=== PATIENT | female | born 1945 | race Caucasian/White ===

== ENCOUNTER 2020-09-29 14:42 | Outpatient (REF) | payer MEDICARE, SELFPAY ==
--- NOTE | 2020-09-29 | US_ITS ---
EXAMINATION: US VENOUS ULTRASOUND WITH DOPPLER LOWER EXTREMITY, RIGHT CLINICAL INFORMATION: Phlebitis right leg COMPARISON: None TECHNIQUE: Ultrasound of the deep veins is performed from the hip to the calf with compression sonography and color and pulse Doppler assessment. Spectral analysis with color-flow imaging is performed. FINDINGS: There is normal venous compression and respiratory variation and augmented flow. The visualized common femoral vein, superficial femoral vein, profunda femoral vein, popliteal vein, and the trifurcation region shows no evidence of deep venous thrombosis. There is a superficial varicosity in the medial calf that demonstrates thrombus compatible with superficial thrombophlebitis. There is no popliteal fossa cyst. There are small right inguinal lymph nodes. US/US venous duplex LE RT IMPRESSION: No DVT demonstrated in the right lower extremity. Superficial thrombophlebitis of a varicose vein in the medial calf.
== END 2020-09-29 14:43 | disposition home or self-care (01) ==
LOC: HO.US 14:42
PROVIDERS: Visit Provider Internal Medicine
DX: R60.0 Localized edema (principal)
CPT/HCPCS: 93971

== ENCOUNTER 2021-03-19 11:01 | Outpatient (REF) | payer MEDICARE, SELFPAY ==
[2021-03-19 13:32] LABS: MANUAL DIFF FLAG NO
[2021-03-19 13:41] LABS: Basophils Absolute Auto 0.1 X10*3/uL (0.0-0.2); Basophils Percent Auto 0.7 % (0-2); Eosinophils Absolute Auto 0.2 X10*3/uL (0.0-0.4); Eosinophils Percent Auto 2.2 % (0-4); Hematocrit 44.9 % (37-47); Imm Gran Abs Auto 0.04 X10*3/uL (0.00-0.03); Imm Gran Pct Auto 0.5 % (0.0-0.4); Lymphocytes Percent Auto 26.8 % (20-40); Mean Corpuscular HGB Conc 31.2 g/dl (31.0-35.0); Mean Corpuscular Hemoglobin 29.1 pg (27.0-33.0); Mean Corpuscular Volume 93.3 fL (80-98); Monocytes Percent Auto 14.1 % (2-11); Neutrophils Absolute Auto 4.1 X10*3/uL (2.0-8.3); Neutrophils Percent Auto 55.7 % (45-73); Platelet Count 142 X10*3/uL (160-400); Red Blood Count 4.81 X10*6/uL (4.20-5.50); White Blood Count 7.3 X10*3/uL (4.8-10.8)
[2021-03-19 14:05] LABS: Alanine Aminotransferase 32 U/L (0-31); Albumin Level 4.1 g/dL (3.5-5.0); Alkaline Phosphatase 88 U/L (39-117); Anion Gap 14 (12-20); Aspartate Amino Transferase 28 U/L (5-31); Bilirubin Total 0.6 mg/dL (0.0-1.0); Blood Urea Nitrogen 15 mg/dL (9-16); Calcium 9.7 mg/dL (8.4-10.2); Carbon Dioxide 26 mmol/L (22-29); Chloride 106 mmol/L (96-108); Estimated Glomerular Filt Rate > 60; Glucose Random 98 mg/dL (60-115); Potassium 4.6 mmol/L (3.3-5.1); Sodium 141 mmol/L (135-145)
[2021-03-19 14:10] LABS: Estimated Average Glucose 117 mg/dL; Hemoglobin A1C 145.7804 umol/L; Hemoglobin A1c % 5.7 %
== END 2021-03-19 11:02 | disposition home or self-care (01) ==
LOC: HO.10HDL 11:01
PROVIDERS: PCP Internal Medicine; Visit Provider Internal Medicine
DX: I10 Essential (primary) hypertension (principal); R73.03 Prediabetes
CPT/HCPCS: 36415; 80053; 83036; 85025

== ENCOUNTER 2021-03-24 13:53 | Outpatient (REF) | payer MEDICARE, SELFPAY ==
--- NOTE | ~2021-03-24 | US_ITS ---
EXAMINATION: US VENOUS ULTRASOUND WITH DOPPLER LOWER EXTREMITY, LEFT CLINICAL INFORMATION: Left leg swelling COMPARISON: None TECHNIQUE: Ultrasound of the deep veins is performed from the hip to the calf with compression sonography and color and pulse Doppler assessment. Spectral analysis with color-flow imaging is performed. FINDINGS: There is normal venous compression and respiratory variation and augmented flow. The visualized common femoral vein, superficial femoral vein, profunda femoral vein, popliteal vein, and the trifurcation region shows no evidence of deep venous thrombosis. There is no significant popliteal fossa cyst. . US/US venous duplex LE LT IMPRESSION: No DVT demonstrated in the left lower extremity.
== END 2021-03-24 13:54 | disposition home or self-care (01) ==
LOC: HO.US 13:53
PROVIDERS: PCP Internal Medicine; Visit Provider Internal Medicine
DX: M79.89 Other specified soft tissue disorders (principal)
CPT/HCPCS: 93971

== ENCOUNTER 2021-05-19 12:14 | Outpatient (REF) | payer MEDICARE, SELFPAY ==
--- NOTE | ~2021-05-19 | MM_ITS ---
EXAMINATION: MM SCREENING DIGITAL BREAST TOMOSYNTHESIS, BILATERAL CLINICAL INFORMATION: Screening. Asymptomatic. The lifetime risk of breast cancer based on the Tyrer-Cuzick Model is 2%. COMPARISON: Mammography: 05/12/2020, 01/31/2019, 01/09/2018 TECHNIQUE: Digital breast tomosynthesis is performed in both the craniocaudal and mediolateral oblique views along with computer-aided detection (CAD). Synthesized 2D images are generated from the tomosynthesis. FINDINGS: The breasts are almost entirely fatty (ACR BI-RADS breast composition Category a). There are no significant masses, abnormal calcifications, or other abnormalities. Background stromal densities are stable. There is no developing density. Biopsy clip marker again seen central lower left breast mid depth. Skin contours are unremarkable. No significant changes. MM/MM tomosynthesis screening BI IMPRESSION: No mammographic evidence of malignancy. ASSESSMENT: BI-RADS 1: Negative RECOMMENDATION: Routine annual mammography screening. This patient's information was entered into a reminder system with a target due date for their next mammogram.
== END 2021-05-19 12:15 | disposition home or self-care (01) ==
LOC: HO.MAMMO 12:14
PROVIDERS: Visit Provider Internal Medicine
DX: Z12.31 Encounter for screening mammogram for malignant neoplasm of breast (principal)
CPT/HCPCS: 77063; 77067

== ENCOUNTER 2021-08-14 14:34 | Outpatient (REF) | payer MEDICARE, SELFPAY ==
[2021-08-14 15:16] LABS: Influenza A PCR NEGATIVE (Negative); Influenza B PCR NEGATIVE (Negative); Resp Syncy Virus RNA Qual PCR NEGATIVE (Negative); SARS COV2 PCR INHOUSE NEGATIVE (Negative)
== END 2021-08-14 14:35 | disposition home or self-care (01) ==
LOC: HO.LNP 14:34
PROVIDERS: Visit Provider Internal Medicine
DX: Z20.822 Contact with and (suspected) exposure to COVID-19 (principal); R05.9 Cough, unspecified; J45.909 Unspecified asthma, uncomplicated
CPT/HCPCS: 0241U

== ENCOUNTER 2021-08-21 11:00 | Outpatient (REF) | payer MEDICARE, SELFPAY ==
[2021-08-21 14:06] LABS: Basophils Absolute Auto 0.1 X10*3/uL (0.0-0.2); Basophils Percent Auto 0.4 % (0-2); Eosinophils Absolute Auto 0.3 X10*3/uL (0.0-0.4); Eosinophils Percent Auto 2.1 % (0-4); Hemoglobin 15.1 g/dl (12.0-16.0); Imm Gran Abs Auto 0.06 X10*3/uL (0.00-0.03); Imm Gran Pct Auto 0.5 % (0.0-0.4); Lymphocytes Absolute Auto 2.9 X10*3/uL (1.2-4.9); Lymphocytes Percent Auto 23.4 % (20-40); MANUAL DIFF FLAG SCAN; Mean Corpuscular HGB Conc 31.5 g/dl (31.0-35.0); Mean Corpuscular Hemoglobin 29.4 pg (27.0-33.0); Mean Corpuscular Volume 93.6 fL (80.0-98.0); Monocytes Percent Auto 8.5 % (2-11); Neutrophils Absolute Auto 7.9 x10*3/uL (2.0-8.3); Neutrophils Percent Auto 65.1 % (45-73); PLT CLUMP 1; Red Blood Count 5.13 X10*6/uL (4.20-5.50); Red Cell Distribution Width 13.2 % (11.0-16.0); SCAN SMEAR FLAG 1
[2021-08-21 14:07] LABS: White Blood Count 12.2 X10*3/uL (4.8-10.8)
[2021-08-21 14:21] LABS: Anion Gap 12 (12-20); Blood Urea Nitrogen 21 mg/dL (9-16); Calcium 9.7 mg/dL (8.4-10.2); Carbon Dioxide 28 mmol/L (22-29); Chloride 105 mmol/L (96-108); Cholesterol 225 mg/dL; Estimated Glomerular Filt Rate > 60; Glucose Random 79 mg/dL (60-115); Potassium 4.3 mmol/L (3.3-5.1); Sodium 141 mmol/L (135-145)
[2021-08-21 14:37] LABS: SLIDE REVIEW VERIFIED
== END 2021-08-21 11:01 | disposition home or self-care (01) ==
LOC: HO.10HDL 11:00
PROVIDERS: Visit Provider Internal Medicine
DX: I10 Essential (primary) hypertension (principal); D64.9 Anemia, unspecified; E78.00 Pure hypercholesterolemia, unspecified
CPT/HCPCS: 36415; 80048; 82465; 85025

== ENCOUNTER 2021-08-24 06:57 | Day surgery (SDC) | payer MEDICARE, SELFPAY ==
[2021-08-18 09:53] VITALS: BMI 40.8
--- NOTE | 2021-08-20 16:29 | MHC.SHP ---
Pre-Procedural Eval Section A Date of Service: 08/20/21 The patient is an INPATIENT: No Changes since office visit: No Cold of Flu in the past 2 weeks, No New Medical Problems, No Changes in Medication and No Patient answered all questions The History & Physical has been completed within 30 days and I have reviewed it.: Yes Section B Chief Complaint: cataract left eye Allergies: Allergies Allergy/AdvReac Type Severity Reaction Status Date / Time No Known Allergies Allergy Unverified 05/29/20 15:14 Plan Diagnosis/Plan: Unchanged I have reviewed the history and physical and performed a pertinent physical examination on my patient. No changes have occurred unless specified.
--- NOTE | 2021-08-21 10:51 | HO.ANESPROP2 ---
Documented by User: Ruma Block NP 08/21/21 10:51 HPI - Anesthesia Eval Consult details Narrative: 75yo F for Left Cataract Extraction IOL Insertion No prev cataract on record [facility] Past Medical History Medical History (Updated 08/18/21 @ 09:55 by Ondina Hughes, NIRMAL) Arthritis Asthma Back pain COVID-19 vaccine series completed DVT (deep venous thrombosis) HTN (hypertension) Surgical History Surgical History (Updated 08/18/21 @ 09:51 by Ondina Hughes RN) H/O colonoscopy History of total right knee replacement Hx of cervical discectomy Hx of cholecystectomy Social History Social History Household Members Other:: roomate Are you a primary career representative to a significant other at home: No Do you presently have visiting nurse or other home services: No Patient Tobacco Use Status: Former Tobacco user Quit Date: age 45 Tobacco use type: Cigarette Years Smoked: 15 Use of substances other than those prescribed or required for medical reasons: No Have you been hit, kicked, punched, or otherwise hurt by someone within the past year? If so, by whom?: No Are you DNR?: No Advance Directives Information Provided: Yes (as above noted) Advance Directives on File: No Recently lost weight without trying: No Eating poorly because of decreased appetite: No Nutrition Risks: No Nutritional Risk Poor oral hygiene: No Meds Allergies Allergy/AdvReac Type Severity Reaction Status Date / Time cortisone Allergy Flushing Verified 08/24/21 07:33 Home Medications Medication Instructions Recorded Confirmed Last Taken Type albuterol sulfate 90 mcg/actuation 2 puff INHALATION Q4-6H PRN 08/18/21 08/18/21 Unknown History aerosol inhaler (Ventolin HFA) amlodipine 2.5 mg tablet 2.5 mg PO DAILY 08/18/21 08/18/21 08/24/21 History aspirin 81 mg tablet,delayed 81 mg PO DAILY 08/18/21 08/18/21 Unknown History release metoprolol tartrate 50 mg tablet 50 mg PO BID 08/18/21 08/18/21 08/24/21 History valsartan 40 mg tablet 40 mg PO BID 08/18/21 08/18/21 Unknown History Exam Exam Date and Time: August 21, 2021 1051 Height,Weight and Vital Signs: Height 5 ft Weight 94.801 kg Assessment and Plan Assessment Anesthesia Assessment: Chart Reviewed Documented by User: Freddy Orlando MD 08/24/21 08:05 [facility] Past Medical History Medical History (Updated 08/18/21 @ 09:55 by Ondina Hughes RN) Arthritis Asthma Back pain COVID-19 vaccine series completed DVT (deep venous thrombosis) HTN (hypertension) Family History Family history of problems with anesthesia: No Surgical History Surgical History (Updated 08/18/21 @ 09:51 by Ondina Hughes RN) H/O colonoscopy History of total right knee replacement Hx of cervical discectomy Hx of cholecystectomy History of Problems with Anesthesia: No Social History Social History Household Members Other:: roomate Are you a primary career representative to a significant other at home: No Do you presently have visiting nurse or other home services: No Patient Tobacco Use Status: Former Tobacco user Quit Date: age 45 Tobacco use type: Cigarette Years Smoked: 15 Use of substances other than those prescribed or required for medical reasons: No Have you been hit, kicked, punched, or otherwise hurt by someone within the past year? If so, by whom?: No Are you DNR?: No Advance Directives Information Provided: Yes (as above noted) Advance Directives on File: No Recently lost weight without trying: No Eating poorly because of decreased appetite: No Nutrition Risks: No Nutritional Risk Poor oral hygiene: No Meds Allergies Allergy/AdvReac Type Severity Reaction Status Date / Time cortisone Allergy Flushing Verified 08/24/21 07:33 Home Medications Medication Instructions Recorded Confirmed Last Taken Type albuterol sulfate 90 mcg/actuation 2 puff INHALATION Q4-6H PRN 08/18/21 08/18/21 Unknown History aerosol inhaler (Ventolin HFA) amlodipine 2.5 mg tablet 2.5 mg PO DAILY 08/18/21 08/18/21 08/24/21 History aspirin 81 mg tablet,delayed 81 mg PO DAILY 08/18/21 08/18/21 Unknown History release metoprolol tartrate 50 mg tablet 50 mg PO BID 08/18/21 08/18/21 08/24/21 History valsartan 40 mg tablet 40 mg PO BID 08/18/21 08/18/21 Unknown History Exam Airway Mallampati Class: II TM Dist: >3cm Neck ROM: Full Loose/Missing/Broken Teeth: No Heart: rrr+[id number] Lungs: cta b/l Assessment and Plan Assessment Anesthesia Assessment: Anesthesia Plan Discussed Final Anesthetic Review Family History of Problems with Anesthesia: No History of Problems with Anesthesia: No NPO: Yes ASA Class: III Final Preanesthetic Review: No Changes in Pt Med Stat, Meds/Allgs Chart Reviewed, Consent Obtained/Reviewed and Anes Risks/Benef Reviewed Patient Risk: Intermediate Procedure Risk: Low Assessment/Block/Sedation in SS: Assess/Block/Sedation-SS Anesthetic Plan Anesthetic Plan: MAC: and Agree w/ Assess. and Plan Disposition: Standard PACU
--- NOTE | 2021-08-21 15:30 | HP_ITS ---
DATE OF SERVICE: 08/24/2021 HISTORY OF PRESENT ILLNESS: The patient is a 75-year-old female, who was seen in the office for preop evaluation prior to cataract surgery scheduled next week. The patient feels well. PRESENT MEDICATIONS: Valsartan 40 mg twice a day, metoprolol 50 mg twice a day, baby aspirin once a day, Ventolin inhaler 2 puffs 4 times a day as needed, and Claritin 10 mg once a day as needed. PAST MEDICAL HISTORY: Significant for gout, hypertension, asthma, back pain, elevated cholesterol, arthritis in the knees, osteoporosis, history of neck surgery, history of gallbladder surgery, and 3 normal deliveries. FAMILY HISTORY: Parents lived into their 90s. SOCIAL HISTORY: She has 3 children. She does not smoke. REVIEW OF SYSTEMS: Weight is down 4 pounds. No fevers, chills, or sweats. No headaches or dizziness. No vision changes. No chest pains or palpitations. Some occasional peripheral edema. Occasional cough. Dyspnea with exertion. No heartburn or stomach pains. No dysuria. Arthritis in the knees. Sleep and appetite are normal. No skin complaints. ALLERGIES: SHE LIST AN ALLERGY TO EPIDURAL INJECTIONS. PHYSICAL EXAMINATION: GENERAL: She is awake and alert, in no distress. VITAL SIGNS: Temperature is 97.8, pulse 72, respirations 12, blood pressure 130/88, and 97% room air oxygen. Weight is 216, down 4 pounds from previously. She is 5 feet 1/2 inch. HEENT: Pupils equal. TMs clear. Pharynx clear. NECK: Supple. No lymph nodes, bruits, or masses. CARDIAC: Heart sounds S1 and S2. Regular rate and rhythm. LUNGS: Clear. ABDOMEN: Soft and nontender. Positive bowel sounds. No HSM. EXTREMITIES: Positive ankle edema, 1+ pulses. Tender right ankle posteriorly. NEUROLOGIC: Cranial nerves II through XII are intact. Hand grasps are equal. ASSESSMENT AND PLAN: She is medically stable for the proposed procedure. I will be available if there are any medical questions. Jay Zambrano MD FC/MODL / [phone]
[2021-08-24 07:33] VITALS: BP 158/88; PULSE 70; RESP 16; TEMP 36.1; O2SAT 95
[2021-08-24] MEDS: Tetracaine HCl/PF 0.5% Oph Sol 4 ML DROPS 1 DROP EYE-LEFT (07:36)
[2021-08-24] MEDS: Tropicamide 1 % Ophth Sol 3 ML BTL 1 DROP EYE-LEFT ×3 (07:37→07:51)
[2021-08-24] MEDS: Phenylephrine HCL 2.5% Oph SoL 2 ML BOTTLE 1 DROP EYE-LEFT ×3 (07:42→07:53)
[2021-08-24] MEDS: Lactated Ringers 500 ML 50 ML IV (07:43)
--- NOTE | 2021-08-24 09:18 | HO.PNOPHT ---
Ophthalmology Procedure Procedure Date of Service: 08/24/21 Ophthalmology Viscoelastic: Healon Duet Dual Pack Pro Ophthalmology Lenses: TECNIS [id number] (11.5) Procedure Notes: PREOPERATIVE DIAGNOSIS: Decreased visual acuity left eye secondary to cataract POSTOPERATIVE DIAGNOSIS: Same PROCEDURE: Left cataract extraction with intraocular lens insertion SURGEON: Diego Paulino M.D. ANESTHESIA: Topical/MAC ESTIMATED BLOOD LOSS: None COMPLICATIONS: None After obtaining informed consent, the patient was brought to the operation room suite and placed in the supine position. After adequate sedation per anesthesia, topical drops of Tetracaine were given to the left eye. The eye was then prepped and draped in the usual sterile fashion. The operating room microscope was then positioned over the operative eye and a lid speculum placed. A paracentesis was created. Viscoelastic was then instilled into the anterior chamber. A three plane incision was then created temporally, utilizing a 2.85 mm keratome. Capsulotomy forceps were then utilized to create a circular tear capsulotomy. Hydrodissection and hydrodelineation were carried out until adequate mobilization of the nucleus occurred. Phacoemulsification was then utilized to remove the dense central nucleus followed by removal of the cortical material utilizing the automated aspiration irrigation unit. Viscoat elastic was instilled into the posterior capsular bag followed by placement of a posterior chamber intraocular lens without difficulty. The residual Viscoat elastic was then removed utilizing the automated IA machine. The wound was check and found to be watertight. The patient tolerated the procedure well and the lid speculum was removed. Intracameral injection of Vigamox 0.1 mL followed by a subtenon injection of Kenalog-40 0.2 mL were administered. The patient will be seen in the a.m.
[2021-08-24 09:40] VITALS: BP 129/84; PULSE 63; RESP 17; TEMP 36.9; O2SAT 96
== END 2021-08-24 09:49 | disposition home or self-care (01) ==
PROVIDERS: PCP Internal Medicine; Visit Provider Ophthalmology
PROC: (CPT 66985; principal; 2021-08-24 09:50)
DX: H25.12 Age-related nuclear cataract, left eye (principal); H52.4 Presbyopia; H52.13 Myopia, bilateral; I10 Essential (primary) hypertension; E78.00 Pure hypercholesterolemia, unspecified; Z79.899 Other long term (current) drug therapy; Z86.718 Personal history of other venous thrombosis and embolism; Z87.891 Personal history of nicotine dependence
CPT/HCPCS: 66984; J2250; J3010; J3300; V2632

== ENCOUNTER 2022-04-26 07:08 | Day surgery (SDC) | payer MEDICARE, SELFPAY ==
[2022-04-14 10:34] VITALS: BMI 40.8
--- NOTE | 2022-04-19 19:34 | HP_ITS ---
DATE OF SERVICE: 04/26/2022 The patient is a 76-year-old female who is seen today for preop evaluation prior to right cataract surgery on April [address] Paulino. She feels well. REVIEW OF SYSTEMS: Some edema in the left ankle. No fevers, chills, or sweats. Weight is up 4 pounds. No headaches or dizziness. No palpitations or chest pain. No coughing or shortness of breath. No heartburn or stomach pains. No dysuria. Some nocturia, arthritis in knees. Sleep and appetite are normal. No complaints of depression or anxiety. She has some seasonal allergies. No skin rashes. PAST MEDICAL HISTORY: Significant for asthma, back pain, hypertension, gout, elevated cholesterol, right ankle pain, overweight, borderline elevated TSH, osteoarthritis of the knees. PRESENT MEDICATIONS: Valsartan 40 mg twice a day, metoprolol 50 mg twice a day, baby aspirin once a day, Ventolin inhaler 2 puffs every 4 hours as needed, Claritin 10 mg daily as needed for allergies, amlodipine 5 mg 1 p.o. daily. PHYSICAL EXAMINATION: GENERAL: She is awake and alert, in no distress. VITAL SIGNS: Temperature 98.5, pulse 68, respirations 12, pressure 114/80, 95% oxygen saturation on room air. Weight is 216.5, height 5 feet 1 inch. HEENT: Clear. NECK: Supple. No lymph nodes, bruits or masses. HEART: Sounds S1 and S2. Regular rate. LUNGS: Clear. A little distant. ABDOMEN: Soft, nontender. Positive bowel sounds. No HSM. EXTREMITIES: Left ankle edema. 1+ pulses. Varicose veins bilaterally. NEUROLOGICAL: Cranial nerves II through XII are intact. No bruising. ASSESSMENT AND PLAN: She is medically stable for the proposed procedure. I will be available if there are any medical issues. MD CASI Gonzalez/ESSENCEL / [phone]
--- NOTE | 2022-04-23 13:03 | HO.ANESPROP2 ---
Documented by User: Ruma Block NP 04/23/22 13:03 HPI - Anesthesia Eval Consult details Narrative: 76yo F for Right Cataract Extraction IOL Insertion PCP cleared Left eye 08/2021 with MAC: Fent 50, Midaz 1 PMF[facility] Past Medical History Medical History Arthritis Asthma Back pain COVID-19 vaccine series completed DVT (deep venous thrombosis) HTN (hypertension) Family History Family history of problems with anesthesia: No Surgical History Surgical History H/O colonoscopy History of total right knee replacement Hx of cervical discectomy Hx of cholecystectomy Hx of left cataract extraction History of Problems with Anesthesia: No Social History Social History Household Members Other:: roomate Are you a primary hospice spiritual care coordinator to a significant other at home: No Do you presently have visiting nurse or other home services: No Patient Tobacco Use Status: Former Tobacco user Quit Date: age 45 Tobacco use type: Cigarette Years Smoked: 15 Use of substances other than those prescribed or required for medical reasons: No Have you been hit, kicked, punched, or otherwise hurt by someone within the past year? If so, by whom?: No Are you DNR?: No Advance Directives: No Advance Directives Information Provided: Yes (as above noted) Advance Directives on File: No Recently lost weight without trying: No Eating poorly because of decreased appetite: No Nutrition Risks: No Nutritional Risk Poor oral hygiene: No Meds Allergies Allergy/AdvReac Type Severity Reaction Status Date / Time cortisone Allergy Flushing Verified 04/26/22 07:48 Home Medications Medication Instructions Recorded Confirmed Last Taken Type albuterol sulfate 90 mcg/actuation 2 puff inhalation Q4-6H PRN 08/18/21 04/14/22 Unknown History aerosol inhaler (Ventolin HFA) Wheezing amlodipine 2.5 mg tablet 2.5 mg PO DAILY 08/18/21 04/14/22 04/26/22 06:30 History aspirin 81 mg tablet,delayed 81 mg PO DAILY 08/18/21 04/14/22 Unknown History release metoprolol tartrate 50 mg tablet 50 mg PO BID 08/18/21 04/14/22 04/26/22 06:30 History valsartan 40 mg tablet 40 mg PO BID 08/18/21 04/14/22 Unknown History colchicine 0.6 mg tablet 1 tab PO DAILY 04/26/22 04/26/22 04/26/22 06:30 History Exam Exam Date and Time: April 23, 2022 1303 Height,Weight and Vital Signs: Height 5 ft Weight 94.801 kg Assessment and Plan Assessment Anesthesia Assessment: Chart Reviewed Final Anesthetic Review Family History of Problems with Anesthesia: No History of Problems with Anesthesia: No Documented by User: Doretha Calloway MD 04/26/22 09:47 [facility] Past Medical History Medical History Arthritis Asthma Back pain COVID-19 vaccine series completed DVT (deep venous thrombosis) HTN (hypertension) Functional capacity: independent ambulation Patient : No Surgical History Surgical History H/O colonoscopy History of total right knee replacement Hx of cervical discectomy Hx of cholecystectomy Hx of left cataract extraction Social History Social History Household Members Other:: roomate Are you a primary hospice spiritual care coordinator to a significant other at home: No Do you presently have visiting nurse or other home services: No Patient Tobacco Use Status: Former Tobacco user Quit Date: age 45 Tobacco use type: Cigarette Years Smoked: 15 Use of substances other than those prescribed or required for medical reasons: No Have you been hit, kicked, punched, or otherwise hurt by someone within the past year? If so, by whom?: No Are you DNR?: No Advance Directives: No Advance Directives Information Provided: Yes (as above noted) Advance Directives on File: No Recently lost weight without trying: No Eating poorly because of decreased appetite: No Nutrition Risks: No Nutritional Risk Poor oral hygiene: No Meds Allergies Allergy/AdvReac Type Severity Reaction Status Date / Time cortisone Allergy Flushing Verified 04/26/22 07:48 Home Medications Medication Instructions Recorded Confirmed Last Taken Type albuterol sulfate 90 mcg/actuation 2 puff inhalation Q4-6H PRN 08/18/21 04/14/22 Unknown History aerosol inhaler (Ventolin HFA) Wheezing amlodipine 2.5 mg tablet 2.5 mg PO DAILY 08/18/21 04/14/22 04/26/22 06:30 History aspirin 81 mg tablet,delayed 81 mg PO DAILY 08/18/21 04/14/22 Unknown History release metoprolol tartrate 50 mg tablet 50 mg PO BID 08/18/21 04/14/22 04/26/22 06:30 History valsartan 40 mg tablet 40 mg PO BID 08/18/21 04/14/22 Unknown History colchicine 0.6 mg tablet 1 tab PO DAILY 04/26/22 04/26/22 04/26/22 06:30 History Exam Airway Mallampati Class: IV TM Dist: >3cm Neck ROM: Full Heart: RRR Lungs: CTA Assessment and Plan Final Anesthetic Review ASA Class: III Final Preanesthetic Review: No Changes in Pt Med Stat, Meds/Allgs Chart Reviewed, Consent Obtained/Reviewed and Anes Risks/Benef Reviewed Patient Risk: Low Procedure Risk: Low Anesthetic Plan Anesthetic Plan: MAC: Disposition: Standard PACU
--- NOTE | 2022-04-26 06:55 | MHC.SHP ---
Pre-Procedural Eval Section A Date of Service: 04/26/22 The patient is an INPATIENT: No Changes since office visit: No Cold of Flu in the past 2 weeks, No New Medical Problems, No Changes in Medication and No Patient answered all questions The History & Physical has been completed within 30 days and I have reviewed it.: Yes Section B Chief Complaint: Age-related nuclear cataract, right eye Allergies: Allergies Allergy/AdvReac Type Severity Reaction Status Date / Time cortisone Allergy Flushing Verified 08/24/21 07:33 Plan Diagnosis/Plan: Unchanged I have reviewed the history and physical and performed a pertinent physical examination on my patient. No changes have occurred unless specified.
[2022-04-26 07:50] VITALS: BP 156/85; PULSE 62; RESP 16; TEMP 36.6; O2SAT 96
[2022-04-26] MEDS: Tetracaine HCl/PF 0.5% Oph Sol 4 ML DROPS 1 DROP EYE-RIGHT (07:53)
[2022-04-26] MEDS: Cyclopentolate 1 % Ophth Sol 2 ML DRPBTL 1 DROP EYE-RIGHT ×3 (07:55→08:06)
[2022-04-26] MEDS: Tropicamide 1 % Ophth Sol 3 ML BTL 1 DROP EYE-RIGHT ×3 (07:58→08:08)
[2022-04-26] MEDS: Phenylephrine HCL 2.5% Oph SoL 2 ML BOTTLE 1 DROP EYE-RIGHT ×3 (07:59→08:09)
[2022-04-26] MEDS: Lactated Ringers 500 ML 50 ML IV (08:01)
--- NOTE | 2022-04-26 09:32 | HO.PNOPHT ---
Ophthalmology Procedure Procedure Date of Service: 04/26/22 Ophthalmology Viscoelastic: Amparo Alanis Dual Pack Pro Ophthalmology Lenses: TECCARLOS [id number] (12) Procedure Notes: PREOPERATIVE DIAGNOSIS: Decreased visual acuity right eye secondary to cataract POSTOPERATIVE DIAGNOSIS: Same PROCEDURE: Right cataract extraction with intraocular lens insertion SURGEON: Diego Paulino M.D. ANESTHESIA: Topical/MAC ESTIMATED BLOOD LOSS: None COMPLICATIONS: None After obtaining informed consent, the patient was brought to the operating room suite and placed in the supine position. After adequate sedation per anesthesia, topical drops of Tetracaine were given to the right eye. The eye was then prepped and draped in the usual sterile fashion. The operating room microscope was then positioned over the operative eye and a lid speculum placed. A paracentesis was created. Viscoelastic was then instilled into the anterior chamber. A three plane incision was then created temporally, utilizing a 2.85 mm keratome. Capsulotomy forceps were then utilized to create a circular tear capsulotomy. Hydrodissection and hydrodelineation were carried out until adequate mobilization of the nucleus occurred. Phacoemulsification was then utilized to remove the dense central nucleus followed by removal of the cortical material utilizing the automated aspiration irrigation unit. Viscoelastic was instilled into the posterior capsular bag followed by placement of a posterior chamber intraocular lens without difficulty. The residual Viscoelastic was then removed utilizing the automated IA machine. The wound was checked and found to be watertight. The patient tolerated the procedure well and the lid speculum was removed. Intracameral injection of Vigamox 0.1 mL followed by a subtenon injection of Kenalog-40 0.2 mL were administered. The patient will be seen in the a.m.
[2022-04-26 10:00] VITALS: BP 148/79; PULSE 66; RESP 18; TEMP 36.1; O2SAT 97
--- NOTE | 2022-04-26 10:46 | HO.POSTANES ---
Post Anesthesia Evaluation Post Anesthesia Evaluation Vital Signs: Vital Signs Temp Pulse Resp BP Pulse Ox O2 Del Method 04/26/22 10:00 97 F 66 18 148/79 H 97 Room Air 04/26/22 07:50 97.8 F 62 16 156/85 H 96 Room Air Anesthesia: Monitored Mental Status: Awake Pain Control: Satisfactory Nausea/Vomiting: None Hydration: Adequate Anesthesia-Related Issues: No Anes. Related Issues
== END 2022-04-26 10:16 ==
LOC: HO.SSS 07:08
PROVIDERS: PCP Internal Medicine; Visit Provider Ophthalmology
PROC: (CPT 66985; principal; 2022-04-26 10:10)
DX: H25.11 Age-related nuclear cataract, right eye (principal); H54.7 Unspecified visual loss; Z96.1 Presence of intraocular lens; I10 Essential (primary) hypertension; E78.00 Pure hypercholesterolemia, unspecified; J45.909 Unspecified asthma, uncomplicated; M10.9 Gout, unspecified; Z86.718 Personal history of other venous thrombosis and embolism; Z79.01 Long term (current) use of anticoagulants; Z79.82 Long term (current) use of aspirin; Z79.899 Other long term (current) drug therapy; Z88.8 Allergy status to other drugs, medicaments and biological substances; Z96.651 Presence of right artificial knee joint; Z87.891 Personal history of nicotine dependence
CPT/HCPCS: 66984; J2250; J3300; V2632

== ENCOUNTER 2022-05-25 10:56 | Outpatient (REF) | payer MEDICARE, SELFPAY ==
--- NOTE | ~2022-05-25 | MM_ITS ---
EXAMINATION: MM SCREENING DIGITAL BREAST TOMOSYNTHESIS, BILATERAL CLINICAL INFORMATION: Screening. Asymptomatic. The lifetime risk of breast cancer based on the Tyrer-Cuzick Model is 2.1%. COMPARISON: Mammography: May 19, 2021 and studies dating back to July 26, 2016 TECHNIQUE: Digital breast tomosynthesis is performed in both the craniocaudal and mediolateral oblique views along with computer-aided detection (CAD). Synthesized 2D images are generated from the tomosynthesis. FINDINGS: The breasts are almost entirely fatty (ACR BI-RADS breast composition Category a). There are no significant masses, abnormal calcifications, or other abnormalities. MM/MM tomosynthesis screening BI IMPRESSION: No significant changes from prior exam. ASSESSMENT: BI-RADS 1: Negative RECOMMENDATION: Routine annual mammography screening. This patient's information was entered into a reminder system with a target due date for their next mammogram.
== END 2022-05-25 10:57 | disposition home or self-care (01) ==
LOC: HO.MAMMO 10:56
PROVIDERS: PCP Internal Medicine; Visit Provider Internal Medicine
DX: Z12.31 Encounter for screening mammogram for malignant neoplasm of breast (principal)
CPT/HCPCS: 77063; 77067

== ENCOUNTER 2022-06-04 14:33 | Outpatient (REF) | payer MEDICARE, SELFPAY ==
[2022-06-04 15:46] LABS: Influenza A PCR NEGATIVE (Negative); Influenza B PCR NEGATIVE (Negative); Resp Syncy Virus RNA Qual PCR NEGATIVE (Negative); SARS COV2 PCR INHOUSE POSITIVE (Negative)
== END 2022-06-04 14:34 | disposition home or self-care (01) ==
LOC: HO.LNP 14:33
PROVIDERS: Visit Provider Internal Medicine
DX: R05.9 Cough, unspecified (principal); Z20.822 Contact with and (suspected) exposure to COVID-19
CPT/HCPCS: 0241U

== ENCOUNTER 2023-01-19 08:50 | Outpatient (REF) | payer MEDICARE, SELFPAY ==
[2023-01-19 10:59] LABS: Basophils Percent Auto 0.5 % (0-2); Eosinophils Absolute Auto 0.2 X10*3/uL (0.0-0.4); Eosinophils Percent Auto 2.9 % (0-4); Hematocrit 46.3 % (37.0-47.0); Hemoglobin 14.8 g/dl (12.0-16.0); Imm Gran Abs Auto 0.02 X10*3/uL (0.00-0.03); Imm Gran Pct Auto 0.3 % (0.0-0.4); Lymphocytes Absolute Auto 2.5 X10*3/uL (1.2-4.9); Lymphocytes Percent Auto 33.5 % (20-40); MANUAL DIFF FLAG SCAN; Mean Corpuscular Hemoglobin 30.6 pg (27.0-33.0); Mean Corpuscular Volume 95.7 fL (80.0-98.0); Monocytes Absolute Auto 0.6 X10*3/uL (0.1-1.2); Monocytes Percent Auto 8.5 % (2-11); Neutrophils Percent Auto 54.3 % (45-73); PLT CLUMP 1; Red Blood Count 4.84 X10*6/uL (4.20-5.50); Red Cell Distribution Width 13.7 % (11.0-16.0); SCAN SMEAR FLAG 1
[2023-01-19 11:18] LABS: Alanine Aminotransferase 40 U/L (0-31); Albumin Level 4.1 g/dL (3.5-5.0); Alkaline Phosphatase 81 U/L (39-117); Anion Gap 9 (12-20); Aspartate Amino Transferase 31 U/L (5-31); Bilirubin Total 1.1 mg/dL (0.0-1.0); Blood Urea Nitrogen 16 mg/dL (9-16); Calcium 10.1 mg/dL (8.4-10.2); Carbon Dioxide 30 mmol/L (22-29); Chloride 107 mmol/L (96-108); Cholesterol 287 mg/dL; Estimated Glomerular Filt Rate > 60; Glucose Fasting 104 mg/dL (60-99); HDL Cholesterol 35 mg/dL; LDL Cholesterol Calculated 188 mg/dl; Potassium 4.6 mmol/L (3.3-5.1); Sodium 141 mmol/L (135-145); Total Protein 6.7 g/dL (6.5-8.0); Triglycerides 321 mg/dL
[2023-01-19 11:30] LABS: Platelet Count 175 X10*3/uL (160-400); SLIDE REVIEW VERIFIED; White Blood Count 7.3 X10*3/uL (4.8-10.8)
== END 2023-01-19 08:51 | disposition home or self-care (01) ==
LOC: HO.10HDL 08:50
PROVIDERS: Visit Provider Internal Medicine
DX: I10 Essential (primary) hypertension (principal); E78.00 Pure hypercholesterolemia, unspecified
CPT/HCPCS: 36415; 80053; 80061; 85025

== ENCOUNTER 2023-05-03 07:56 | Outpatient (REF) | payer MEDICARE, SELFPAY ==
[2023-05-03 11:10] LABS: Alanine Aminotransferase 39 U/L (0-31); Albumin Level 4.2 g/dL (3.5-5.0); Alkaline Phosphatase 84 U/L (39-117); Anion Gap 11 (12-20); Aspartate Amino Transferase 30 U/L (5-31); Bilirubin Total 0.7 mg/dL (0.0-1.0); Blood Urea Nitrogen 18 mg/dL (9-16); Calcium 10.6 mg/dL (8.4-10.2); Carbon Dioxide 28 mmol/L (22-29); Chloride 106 mmol/L (96-108); Cholesterol 303 mg/dL (<200); Estimated Glomerular Filt Rate > 60; Glucose Fasting 115 mg/dL (60-99); HDL Cholesterol 39 mg/dL (>40); LDL Cholesterol Calculated 204 mg/dL (<100); Potassium 4.4 mmol/L (3.3-5.1); Sodium 141 mmol/L (135-145); Total Protein 7.2 g/dL (6.5-8.0); Triglycerides 303 mg/dL (<150)
== END 2023-05-03 07:57 | disposition home or self-care (01) ==
LOC: HO.10HDL 07:56
PROVIDERS: Visit Provider Internal Medicine
DX: I10 Essential (primary) hypertension (principal); E78.00 Pure hypercholesterolemia, unspecified
CPT/HCPCS: 36415; 80053; 80061

== ENCOUNTER 2023-05-31 10:50 | Outpatient (REF) | payer MEDICARE, SELFPAY | END 2023-05-31 10:51 | disposition home or self-care (01) | LOC: HO.MAMMO 10:50 | PROVIDERS: PCP Internal Medicine; Visit Provider Internal Medicine | DX: Z12.31 Encounter for screening mammogram for malignant neoplasm of breast (principal) | CPT/HCPCS: 77063; 77067 ==

== ENCOUNTER → 2023-05-31 11:00 | Outpatient (BNV) | payer MEDICARE, SELFPAY | PROVIDERS: PCP Internal Medicine; Visit Provider Radiology Diagnostic Radiology | DX: Z12.31 Encounter for screening mammogram for malignant neoplasm of breast (principal) | CPT/HCPCS: 77063; 77067 ==

== ENCOUNTER 2023-10-21 09:25 | Outpatient (REF) | payer MEDICARE, SELFPAY ==
[2023-10-21 11:09] LABS: Estimated Average Glucose 114 mg/dL; Hemoglobin A1c % 5.6 % (<6.0)
[2023-10-21 11:41] LABS: Alanine Aminotransferase 24 U/L (0-31); Anion Gap 12 (12-20); Aspartate Amino Transferase 18 U/L (5-31); Blood Urea Nitrogen 29 mg/dL (9-16); Calcium 10.3 mg/dL (8.4-10.2); Carbon Dioxide 26 mmol/L (22-29); Chloride 107 mmol/L (96-108); Cholesterol 154 mg/dL (<200); Estimated Glomerular Filt Rate 57; Glucose Fasting 117 mg/dL (60-99); HDL Cholesterol 42 mg/dL (>40); LDL Cholesterol Calculated 92 mg/dL (<100); Potassium 4.7 mmol/L (3.3-5.1); Sodium 140 mmol/L (135-145); Triglycerides 102 mg/dL (<150)
== END 2023-10-21 09:26 | disposition home or self-care (01) ==
LOC: HO.10HDL 09:25
PROVIDERS: Visit Provider Internal Medicine
DX: E78.00 Pure hypercholesterolemia, unspecified (principal); I10 Essential (primary) hypertension; R73.03 Prediabetes
CPT/HCPCS: 36415; 80048; 80061; 82550; 83036; 84450; 84460

== ENCOUNTER 2024-03-27 10:21 | Outpatient (REF) | payer MEDICARE, SELFPAY ==
[2024-03-27 11:15] LABS: Alanine Aminotransferase 22 U/L (0-31); Albumin Level 4.1 g/dL (3.5-5.0); Alkaline Phosphatase 112 U/L (39-117); Anion Gap 12 (12-20); Aspartate Amino Transferase 19 U/L (5-31); Bilirubin Total 0.9 mg/dL (0.0-1.0); Blood Urea Nitrogen 16 mg/dL (9-16); Calcium 10.3 mg/dL (8.4-10.2); Carbon Dioxide 28 mmol/L (22-29); Chloride 107 mmol/L (96-108); Cholesterol 166 mg/dL (<200); Estimated Glomerular Filt Rate > 60; Glucose Fasting 102 mg/dL (60-99); HDL Cholesterol 43 mg/dL (>40); LDL Cholesterol Calculated 94 mg/dL (<100); Potassium 4.3 mmol/L (3.3-5.1); Sodium 143 mmol/L (135-145); Total Protein 6.9 g/dL (6.5-8.0); Triglycerides 149 mg/dL (<150)
== END 2024-03-27 10:22 | disposition home or self-care (01) ==
LOC: HO.10HDL 10:21
PROVIDERS: Visit Provider Internal Medicine
DX: I10 Essential (primary) hypertension (principal); E78.00 Pure hypercholesterolemia, unspecified
CPT/HCPCS: 36415; 80053; 80061

== ENCOUNTER 2024-06-05 11:02 | Outpatient (REF) | payer MEDICARE, SELFPAY ==
--- NOTE | ~2024-06-05 | MM_ITS ---
EXAMINATION: MM SCREENING DIGITAL BREAST TOMOSYNTHESIS, BILATERAL CLINICAL INFORMATION: Screening. Asymptomatic. COMPARISON: Mammography: Comparison is made with available priors TECHNIQUE: Digital breast mammography with tomosynthesis is performed in both the craniocaudal and mediolateral oblique views along with computer-aided detection (CAD). FINDINGS: There are scattered areas of fibroglandular density (ACR BI-RADS breast composition Category b). Left marker clip. There are no significant masses, abnormal calcifications, or other abnormalities. MM/MM tomosynthesis screening BI IMPRESSION: No mammographic evidence of malignancy. ASSESSMENT: BI-RADS BI-RADS 2 - Benign Findings RECOMMENDATION: Routine annual mammography screening. 1 year F/U This examination should not preclude the clinical evaluation of a suspicious palpable abnormality. This patient's information was entered into a reminder system with a target due date for their next mammogram. Electronically signed by: Jo Babb DO 06/15/2024 12:35 PM EDT
== END 2024-06-05 11:03 | disposition home or self-care (01) ==
LOC: HO.MAMMO 11:02
PROVIDERS: PCP Internal Medicine; Visit Provider Internal Medicine
DX: Z12.31 Encounter for screening mammogram for malignant neoplasm of breast (principal)
CPT/HCPCS: 77063; 77067

== ENCOUNTER → 2024-06-05 11:15 | Outpatient (BNV) | payer MEDICARE, SELFPAY | PROVIDERS: PCP Internal Medicine; Visit Provider Internal Medicine | DX: Z12.31 Encounter for screening mammogram for malignant neoplasm of breast (principal) | CPT/HCPCS: 77063; 77067 ==

== ENCOUNTER 2024-12-21 11:17 | Outpatient (AMB) | payer MEDICARE, SELFPAY ==
[2024-12-21 11:23] VITALS: BP 136/80; PULSE 64; TEMP 36.2; O2SAT 96; BMI 41.4
--- NOTE | 2024-12-21 11:23 | A.OFFPC_ITS ---
Vital Signs 12/21/24 11:23 Height 5 ft 1 in Weight 219 lb BMI 41.4 BP 136/80 Blood Pressure Location Lt brachial Position Sitting Pulse 64 Pulse Source Pulse Oximeter Temp 97.1 F Temp Source Axillary Pulse Oximetry (%) 96 Oxygen Delivery Method Room Air Intake Visit Reasons: Routine Pull Worker Required: No Accompanied by: Self / Same As Patient Allergies celecoxib [From Celebrex] Allergy (Verified 12/21/24 11:34) Diarrhea cortisone Allergy (Verified 12/21/24 11:34) Flushing Medication List - Last Reconciled 12/21/24 by Oksana Tiwari MD albuterol sulfate 90 mcg/actuation (Ventolin HFA) 2 puffs inhalation Q4-6H PRN allopurinol 300 mg PO DAILY amlodipine 2.5 mg PO DAILY aspirin 81 mg PO DAILY meloxicam 7.5 mg PO DAILY metoprolol tartrate 50 mg PO BID Trelegy Ellipta 100-62.5-25 mcg (lnseevfhbub-lvocssvhn-xncelpkx) 1 inh inhalation DAILY NS valsartan 160 mg PO DAILY Tobacco use date assessed: 12/21/24 Fall risk assessment: No Falls in past year Last assessed Fall Risk: 12/21/24 Dental Screening Dental Screen Date: 12/21/24 Did you have a dental visit in the last 12 months?: Yes Did you have a dental problem in the last 6 months where you did not have access to dental care?: No HPI HPI Comments History of Present Illness Details The patient is an 79 year old female with a past medical history of hypertension, hyperlipidemia, CKD, prediabetes, OA, asthma presenting for follow up. Last seen by pcp in July CV: on amlodipine 2.5mg, valsartan 160mg, metoprolol, 136/80. Denies chest pain, dizziness Asthma: Albuterol prn, claritin. Increased wheezing with less activity. albuterol helps but overall worse control. no cp or tightness OA: on meloxicam. Epidural shots and celebrex in the past. Sees Dr Fountain. Gout is well controlled Mammo 05/2024 ROS see hPI PHYSICAL EXAM: GENERAL: Alert and oriented x 3. NAD EYES: EOMI. Anicteric. HENT: Moist mucous membranes. No scleral icterus. No cervical lymphadenopathy. LUNGS: Clear to auscultation bilaterally. CARDIOVASCULAR: Regular rate and rhythm. No murmur. No JVD. ABDOMEN: Soft, non-tender +bs EXTREMITIES: No edema. Non-tender. SKIN: No rashes or lesions. Warm. NEUROLOGIC: No focal neurological deficits. CN II-XII grossly intact PSYCHIATRIC: Cooperative. Appropriate mood and affect [facility] Medical History COVID-19 vaccine series completed DVT (deep venous thrombosis) Asthma Arthritis Back pain HTN (hypertension) Surgical History Hx of left cataract extraction Hx of cervical discectomy H/O colonoscopy Hx of cholecystectomy History of total right knee replacement Family History Mother No problems noted. Father No problems noted. Social History Household Members Other:: roomate Housing: House Are you a primary healthcare social worker to a significant other at home: No Do you presently have visiting nurse or other home services: No Patient Tobacco Use Status: Former Tobacco user Tobacco use type: Cigarette Years Smoked: 15 e-Cigarette/Vaping Use: Former Use service: No Current occupational status: retired Cognitive needs: No Hearing needs: No Vision needs: No Questionnaire PHQ-9 Over the last 2 weeks, how often have you been bothered by any of the following problems? 1. Little interest or pleasure in doing things: not at all 2. Feeling down, depressed, or hopeless: not at all 3. Trouble falling or staying asleep, or sleeping too much: not at all 4. Feeling tired or having little energy: not at all 5. Poor appetite or overeating: not at all 6. Feeling bad about yourself - or that you are a failure or have let yourself or your family down: not at all 7. Trouble concentrating on things, such as reading the newspaper or watching television: not at all 8. Moving or speaking so slowly that other people could have noticed. Or the opposite - being so fidgety or restless that you have been moving around a lot more than usual: not at all 9. Thoughts that you would be better off or of hurting yourself in some way: not at all Total score: 0 Depression Screening Interpretation: Negative Depression Screening Done: Yes 13841 - PHQ-9 Billing: Yes Source: Developed by Drs. Montez Mar, Rhina Ro, Blayne Costa and colleagues, with an educational fely from [employer]. Thrive Questionnaire Date Thrive assessed: 12/21/24 I am a: Patient Within the past 12 months, did the food you bought not last and you didn't have the money to get more?: Never true Within the past 12 months, did you worry whether your food would run out before you got money to buy more?: Never true Do you have trouble paying for medicines?: No Do you have trouble getting transportation to medical appointments?: No Do you have trouble paying your heating and electricity bill?: No Do you have trouble taking care of your child, family member or friend?: No Do you have trouble with day-to-day activities such as bathing, preparing meals, shopping, managing finances, etc.?: No Are you currently unemployed and looking for a job?: No Are you interested in more education?: No THRIVE Score: 0 AUDIT C Alcohol Use Questionnaire (AUDIT-C) 1. How often do you have a drink containing alcohol?: Monthly or less 2. How many drinks containing alcohol do you have on a typical day when you are drinking?: 1 or 2 3. How often do you have six or more drinks on one occasion?: Less than monthly Total Score: 2 LAURA-7 AMB Questionnaire LAURA-7 Date LAURA - 7 assessed: 12/21/24 Feeling nervous, anxious, or on edge: 0 = Not at all Not being able to stop or control worryin = Not at all Worrying too much about different things: 0 = Not at all Trouble relaxin = Not at all Being so restless that it is hard to sit still: 0 = Not at all Becoming easily annoyed or irritable: 0 = Not at all Feeling afraid as if something awful might happen: 0 = Not at all Total LAURA-7 score (0-4 normal; 5-9 mild; 10-14 moderate; 15-21 severe): 0 Source: Developed by Drs. Montez Mar, Rhina Ro, Blayne Costa and colleagues, with an educational fely from [employer]. Physical exam (Primary Care) Vital Signs: Last Vital Signs Temp 97.1 F 12/21/24 11:23 Pulse 64 12/21/24 11:23 BP 136/80 12/21/24 11:23 Pulse Ox 96 12/21/24 11:23 Oxygen Delivery Method Room Air 12/21/24 11:23 BMI result Body Mass Index 41.4 Tobacco/Smoking Status: Tobacco use Status Tobacco use date assessed 12/21/24 12/21/24 11:25 Patient Tobacco Use Status Former Tobacco user 12/21/24 11:25 Tobacco use type Cigarette 12/21/24 11:25 e-Cigarette/Vaping Use Former Use 12/21/24 11:37 PHQ-9: PHQ-9 Score PHQ-9: Total score 0 12/21/24 11:50 Depression Screening Interpretation: Negative Thrive Assessment: Date of Thrive Assessment Date Thrive assessed 12/21/24 12/21/24 11:25 Coding Level of Care Code New Pt Level 4 (93328) Complex EM visit Add On G2211 Diagnoses Primary hypertension I10 Hypertension type: primary hypertension Hyperlipidemia, unspecified hyperlipidemia type E78.5 Hyperlipidemia type: unspecified Prediabetes R73.03 Additional Codes PHQ-9 - 46126 - PHQ-9 Billing: Yes ([id number]) Assessment & Plan Assessment & Plan (1) HTN (hypertension): Code(s): I10 - Essential (primary) hypertension Category: Medical Qualifiers: Hypertension type: primary hypertension Qualified Code(s): I10 - Essential (primary) hypertension (2) Hyperlipidemia: Code(s): E78.5 - Hyperlipidemia, unspecified Category: Medical Qualifiers: Hyperlipidemia type: unspecified Qualified Code(s): E78.5 - Hyperlipidemia, unspecified (3) Prediabetes: Code(s): R73.03 - Prediabetes Category: Medical Plan 79 y/o to establish care Past medical, surgical, social, family history reviewed Medications reconciled asthma worse control Trelegy once daily ordered She will return in 6 months, but sooner if shortness of breath continues. consider pulm, cardiology work up if so Orders: Orders Complete Blood Count Auto Diff Today E78.5 - Hyperlipidemia, unspecified, R73.03 - Prediabetes Lipid Panel Today E78.5 - Hyperlipidemia, unspecified, R73.03 - Prediabetes Vitamin B12 and Folate Today E78.5 - Hyperlipidemia, unspecified, R73.03 - Prediabetes MM screening mammo BI 5 Months Z12.31 - Encounter for screening mammogram for malignant neoplasm of breast Comprehensive Met. Panel Today E78.5 - Hyperlipidemia, unspecified, R73.03 - Prediabetes Hemoglobin A1c Today E78.5 - Hyperlipidemia, unspecified, R73.03 - Prediabetes Medications: New Trelegy Ellipta 100-62.5-25 mcg (extwafnwudj-olowmztvs-hykvjrcl) 1 inh inhalation DAILY 1 ea 11RF NS
== END 2024-12-21 11:58 | disposition home or self-care (01) ==
LOC: HO.HMCHD 11:17
PROVIDERS: PCP Internal Medicine; Visit Provider Internal Medicine
DX: I10 Essential (primary) hypertension (principal); E78.5 Hyperlipidemia, unspecified; R73.03 Prediabetes

== ENCOUNTER → 2024-12-21 11:17 | Outpatient (BNVA) | payer MEDICARE, SELFPAY | PROVIDERS: PCP Internal Medicine; Visit Provider Internal Medicine | DX: Z13.89 Encounter for screening for other disorder (principal) | CPT/HCPCS: 96127; 99202 ==

== ENCOUNTER 2024-12-21 12:01 | Outpatient (REF) | payer MEDICARE, SELFPAY ==
[2024-12-21 13:08] LABS: MANUAL DIFF FLAG NO
[2024-12-21 13:23] LABS: Basophils Absolute Auto 0.1 X10*3/uL (0.0-0.2); Eosinophils Absolute Auto 0.4 X10*3/uL (0.0-0.4); Eosinophils Percent Auto 4.1 % (0-4); Hematocrit 45.8 % (37.0-47.0); Imm Gran Abs Auto 0.05 X10*3/uL (0.00-0.03); Imm Gran Pct Auto 0.5 % (0.0-0.4); Lymphocytes Percent Auto 29.8 % (20-40); Mean Corpuscular HGB Conc 32.8 g/dl (31.0-35.0); Mean Corpuscular Hemoglobin 30.7 pg (27.0-33.0); Mean Corpuscular Volume 93.9 fL (80.0-98.0); Mean Platelet Volume 11.1 fL (9.4-12.3); Monocytes Absolute Auto 0.9 X10*3/uL (0.1-1.2); Monocytes Percent Auto 8.6 % (2-11); Neutrophils Absolute Auto 5.6 x10*3/uL (2.0-8.3); Platelet Count 184 X10*3/uL (160-400); Red Blood Count 4.88 X10*6/uL (4.20-5.50); Red Cell Distribution Width 14.1 % (11.0-16.0); White Blood Count 9.9 X10*3/uL (4.8-10.8)
[2024-12-21 13:28] LABS: Alanine Aminotransferase 38 U/L (0-31); Albumin Level 4.2 g/dL (3.5-5.0); Alkaline Phosphatase 98 U/L (39-117); Anion Gap 10 (12-20); Aspartate Amino Transferase 31 U/L (5-31); Bilirubin Total 0.6 mg/dL (0.0-1.0); Blood Urea Nitrogen 18 mg/dL (9-16); Calcium 10.1 mg/dL (8.4-10.2); Carbon Dioxide 28 mmol/L (22-29); Chloride 108 mmol/L (96-108); Cholesterol 292 mg/dL (<200); Estimated Glomerular Filt Rate > 60; Glucose Random 94 mg/dL (60-115); HDL Cholesterol 43 mg/dL (>40); LDL Cholesterol Calculated 190 mg/dL (<100); Potassium 4.6 mmol/L (3.3-5.1); Sodium 141 mmol/L (135-145); Total Protein 7.2 g/dL (6.5-8.0); Triglycerides 295 mg/dL (<150)
[2024-12-21 13:51] LABS: Estimated Average Glucose 117 mg/dL; Hemoglobin A1C 152.7228 umol/L; Hemoglobin A1c % 5.7 % (<6.0); Total Hemoglobin (HGBA1C) 3951.4946 umol/L
[2024-12-21 13:53] LABS: Folate 9.3 ng/mL (> or = 4.0); Vitamin B12 453 pg/mL (200-900)
== END 2024-12-21 12:02 | disposition home or self-care (01) ==
LOC: HO.10HDL 12:01
PROVIDERS: Visit Provider Internal Medicine
DX: E78.5 Hyperlipidemia, unspecified (principal); R73.03 Prediabetes; I10 Essential (primary) hypertension
CPT/HCPCS: 36415; 80053; 80061; 82607; 82746; 83036; 85025; 96127; 99202

== ENCOUNTER 2025-05-26 22:54 | Emergency (ER) | payer MEDICARE, SELFPAY ==
--- NOTE | 2025-05-26 | ECG_ITS ---
Test Reason : CHEST PAIN Blood Pressure : */* mmHG Vent. Rate : 90 BPM Atrial Rate : 90 BPM P-R Int : 162 ms QRS Dur : 152 ms QT Int : 414 ms P-R-T Axes : 57 261 6 degrees QTcB Int : 506 ms Sinus rhythm with Premature atrial complexes Right bundle branch block Abnormal ECG When compared with ECG of 22-Dec-2009 06:05, Right bundle branch block present Referred By: Generic ED Physician Electronically Signed By: SILVER ORTIZ
--- NOTE | ~2025-05-26 | XR_ITS ---
CLINICAL HISTORY: chest pain 1 view chest x-ray Comparison: None provided Findings: The lungs are clear. Normal size heart. No acute fracture. IMPRESSION: 1. No acute findings. This document has been electronically signed by: Amadou Hussein MD on 05/27/2025 00:42:15
--- NOTE | ~2025-05-26 | CT_ITS ---
CLINICAL HISTORY: chest pain, hx DVT CT angiography chest with contrast. 3D Postprocessing. Comparison: None provided Findings: There is no pulmonary embolism. Heart size is within normal limits. There is no pericardial effusion. Thoracic aorta is normal in diameter without dissection. There are no enlarged lymph nodes. There is mild bilateral atelectasis. Lungs appear otherwise clear. Trachea and central bronchi are widely patent. There is no fracture or suspicious lytic or sclerotic lesion. Limited images of the upper abdomen demonstrate no acute findings. IMPRESSION: No pulmonary embolism. This document has been electronically signed by: Austin Green MD on 05/27/2025 03:19:59
[2025-05-26 23:02] VITALS: BP 160/00; PULSE 85; O2SAT 96
[2025-05-26 23:06] VITALS: BP 183/93; PULSE 95; RESP 18; TEMP 36.7; O2SAT 96; BMI 41.1
--- NOTE | 2025-05-26 23:12 | ED_ITS ---
HPI - Chest Pain General Chief Complaint: Chest Pain Stated Complaint: sudden onset dizziness, chest pain Time Seen by Provider: 05/26/25 23:12 Source: patient and EMS Mode of arrival: EMS Limitations: no limitations History of Present Illness ED Provider: Dr. Duyen Marie HPI narrative: 79-year-old female with a history of hypertension, hyperlipidemia, CKD, prediabetes, asthma presenting with dizziness, chest pain, shortness of breath that started acutely tonight while lying down watching TV around 9pm. Describes a substernal chest discomfort and palpitations that has been constant since it started though has improved. She took 4 baby aspirin prior to leaving in the ambulance. Admits to associated nausea but no vomiting. Slight shortness of breath. No reported fever, cough or sputum production. No known sick contacts or travel. Denies lower extremity edema or pain. Related Data Home Medications ?Medication ?Instructions ?Recorded ?Confirmed albuterol sulfate 90 mcg/actuation 2 puff inhalation Q 4-6H PRN 08/18/21 04/14/22 aerosol inhaler (Ventolin HFA) Wheezing amlodipine 2.5 mg tablet 2.5 mg PO DAILY 08/18/2112/01 aspirin 81 mg tablet,delayed 81 mg PO DAILY 08/18/21 0 04/14/22 release metoprolol tartrate 50 mg tablet 50 mg PO BID 08/18/21 04/14/22 allopurinol 300 mg tablet 300 mg PO DAILY 12/21/24 meloxicam 7.5 mg tablet 7.5 mg PO DAILY 12/21/24 valsartan 160 mg tablet 160 mg PO DAILY 12/21/24 Previous Rx's ?Medication ?Instructions ?Recorded Trelegy Ellipta 100 mcg-62.5 1 inh inhalation DAILY #1 ea 12/21/24 mcg-25 mcg powder for inhalation (kywiewtfefl-wybzvmhng-parfeufa) atorvastatin 20 mg tablet 20 mg PO BEDTIME #90 tabs ondansetron 4 mg disintegrating 4 mg PO Q8H PRN nausea and 05/27/25 tablet vomiting #10 tabs Allergies Allergy/AdvReac Type Severity Reaction Status Date / Time celecoxib (From Celebrex) Allergy Diarrhea Verified 05/26/25 23:10 cortisone Allergy Flushing Verified 05/26/25 23:10 Review of Systems 2 Review of Systems: As per HPI, full review of systems performed and negative but for the above mentioned pertinent positives and negatives. [facility] Past Medical History Medical History COVID-19 vaccine series completed DVT (deep venous thrombosis) Asthma Arthritis Back pain HTN (hypertension) Surgical History Hx of left cataract extraction Hx of cervical discectomy H/O colonoscopy Hx of cholecystectomy History of total right knee replacement Family History Family History Mother No problems noted. Father No problems noted. Social History Social History Household Members Other:: roomate Housing: House Are you a primary patient care director to a significant other at home: No Do you presently have visiting nurse or other home services: No Patient Tobacco Use Status: Former Tobacco user Tobacco use type: Cigarette Years Smoked: 15 e-Cigarette/Vaping Use: Former Use service: No Current occupational status: retired Cognitive needs: No Hearing needs: No Vision needs: No Physical Exam 2 Vital Signs: Vital Signs: Last Vital Signs Temp 98.6 F 05/27/25 05:08 Pulse 66 05/27/25 05:08 Resp 18 05/27/25 05:08 BP 126/60 05/27/25 05:08 Pulse Ox 95 05/27/25 05:08 O2 Del Method Room Air 05/27/25 05:08 BMI result Body Mass Index 41.1 Medications Administered Discontinued Medications Generic Name Dose Route Start Last Admin Trade Name Freq PRN Reason Stop Dose Admin Iohexol 65 ml 05/27/25 02:26 05/27/25 02:27 Iohexol 350 Mg/Ml 100 Ml Infus..Btl IV 05/27/25 02:27 65 ml ONCE ONE Administration Medical Decision Making Medical Decision Making MDM Narrative: Patient presents today with a chief complaint of chest pain. Differential diagnosis includes, but is not limited to, acute coronary syndrome, musculoskeletal pain, pneumothorax, GERD, pleurisy, pulmonary embolism, dissection, among others. I will order EKG, chest x-ray, the laboratory workup including cardiac enzymes to further evaluate for etiology. D-dimer slightly positive though only mildly so. CTA added on. CTA is negative for pulmonary embolism. Patient is feeling improved and at this point is requesting discharge. Using shared decision making, plan for discharge home to follow-up with primary care and/or specialist. Patient understands and agrees with plan for discharge. Discharged home in stable condition. Differential Diagnosis Differential Diagnoses: The differential diagnosis associated with the presentation includes (As above) Admission/Observation Consideration of admission/observation: Escalation of care including admission/observation considered Lab Data MDM Lab Attestation statement: I reviewed the patient's lab results. 05/26/25 23:26 05/27/25 00:25 Labs: Lab Results 05/26/25 05/26/25 05/27/25 Range/Units 23:26 23:29 00:25 WBC 11.4 H (4.8-10.8) X10*3/uL RBC 4.91 (4.20-5.50) X10*6/uL Hgb 15.2 (12.0-16.0) g/dl Hct 46.0 (37.0-47.0) % MCV 93.7 (80.0-98.0) fL MCH 31.0 (27.0-33.0) pg MCHC 33.0 (31.0-35.0) g/dl RDW 13.7 (11.0-16.0) % Plt Count 179 (160-400) X10*3/uL MPV 10.6 (9.4-12.3) fL Immature Gran % (Auto) 0.4 (0.0-0.4) % Neut % (Auto) 65.2 (45-73) % Lymph % (Auto) 22.9 (20-40) % Terrell % (Auto) 8.7 (2-11) % Eos % (Auto) 2.2 (0-4) % Baso % (Auto) 0.6 (0-2) % Lymph # (Auto) 2.6 (1.2-4.9) X10*3/uL Terrell # (Auto) 1.0 (0.1-1.2) X10*3/uL Eos # (Auto) 0.3 (0.0-0.4) X10*3/uL Baso # (Auto) 0.1 (0.0-0.2) X10*3/uL Abs Immat Gran (auto) 0.05 H (0.00-0.03) X10*3/uL Absolute Neuts (auto) 7.5 (2.0-8.3) x10*3/uL Absolute Nucleated RBC 0.000 (0.0-0.012) X10*3/uL Nucleated RBC % (auto) 0.0 (0.0-0.2) /100WBC D-Dimer High Sensitivty 412 NG/ML Sodium 142 142 (135-145) mmol/L Potassium 4.6 4.9 (3.3-5.1) mmol/L Chloride 106 107 (96-108) mmol/L Carbon Dioxide 26 26 (22-29) mmol/L Anion Gap 15 14 (12-20) BUN 16 15 (9-16) mg/dL Creatinine 0.83 0.87 (0.5-1.4) mg/dL Estim Creat Clear Calc 57.1 54.5 Estimated GFR > 60 > 60 Random Glucose 127 H 137 H (60-115) mg/dL Calcium 10.0 10.2 (8.4-10.2) mg/dL Magnesium 2.2 (1.6-2.6) mg/dL Total Bilirubin 0.7 (0.0-1.0) mg/dL AST 42 H (5-31) U/L ALT 38 H (0-31) U/L Alkaline Phosphatase 134 H (39-117) U/L Troponin I High Sens 6.0 (<3.5-17.0) ng/L Total Protein 7.7 (6.5-8.0) g/dL Albumin 4.4 (3.5-5.0) g/dL Lipase 18 (8-78) U/L Urine Color Yellow Urine Appearance Clear Urine pH 8.5 (5.0-9.0) Ur Specific [place] 1.010 (1.005-1.025) Urine Protein Trace (Neg-Trace) mg/dL Urine Glucose (UA) Negative (Negative) mg/dL Urine Ketones Negative (Negative) mg/dL Urine Blood Negative (Negative) Urine Nitrite Negative (Negative) Ur Leukocyte Esterase Negative (Negative) 05/27/25 Range/Units 01:55 WBC (4.8-10.8) X10*3/uL RBC (4.20-5.50) X10*6/uL Hgb (12.0-16.0) g/dl Hct (37.0-47.0) % MCV (80.0-98.0) fL MCH (27.0-33.0) pg MCHC (31.0-35.0) g/dl RDW (11.0-16.0) % Plt Count (160-400) X10*3/uL MPV (9.4-12.3) fL Immature Gran % (Auto) (0.0-0.4) % Neut % (Auto) (45-73) % Lymph % (Auto) (20-40) % Terrell % (Auto) (2-11) % Eos % (Auto) (0-4) % Baso % (Auto) (0-2) % Lymph # (Auto) (1.2-4.9) X10*3/uL Terrell # (Auto) (0.1-1.2) X10*3/uL Eos # (Auto) (0.0-0.4) X10*3/uL Baso # (Auto) (0.0-0.2) X10*3/uL Abs Immat Gran (auto) (0.00-0.03) X10*3/uL Absolute Neuts (auto) (2.0-8.3) x10*3/uL Absolute Nucleated RBC (0.0-0.012) X10*3/uL Nucleated RBC % (auto) (0.0-0.2) /100WBC D-Dimer High Sensitivty NG/ML Sodium (135-145) mmol/L Potassium (3.3-5.1) mmol/L Chloride (96-108) mmol/L Carbon Dioxide (22-29) mmol/L Anion Gap (12-20) BUN (9-16) mg/dL Creatinine (0.5-1.4) mg/dL Estim Creat Clear Calc Estimated GFR Random Glucose (60-115) mg/dL Calcium (8.4-10.2) mg/dL Magnesium (1.6-2.6) mg/dL Total Bilirubin (0.0-1.0) mg/dL AST (5-31) U/L ALT (0-31) U/L Alkaline Phosphatase (39-117) U/L Troponin I High Sens 6.2 (<3.5-17.0) ng/L Total Protein (6.5-8.0) g/dL Albumin (3.5-5.0) g/dL Lipase (8-78) U/L Urine Color Urine Appearance Urine pH (5.0-9.0) Ur Specific [place] (1.005-1.025) Urine Protein (Neg-Trace) mg/dL Urine Glucose (UA) (Negative) mg/dL Urine Ketones (Negative) mg/dL Urine Blood (Negative) Urine Nitrite (Negative) Ur Leukocyte Esterase (Negative) Independent Interpretation I performed an independent interpretation of an: EKG and Plain X-Ray Radiology Impression Discussion of test interpretation with radiology: I have reviewed the radiologist's reading. Independent Historian Clinical information obtained from an independent historian. History obtained from or confirmed by: Spouse and EMS External Record Review External record reviewed: Inpatient record Chronic Conditions Patient?s care impacted by: Diabetes, Hypertension and Other (CKD) Discharge Plan Discharge Clinical Impression: Atypical chest pain, Acute viral syndrome Patient Disposition: Home, Self-Care Instructions: Chest Pain (ED), Viral Syndrome (ED) Additional Instructions: DIAGNOSIS & TREATMENT: You were seen in the Emergency Department for your chest discomfort. We performed an EKG, laboratory work and chest xray which did not reveal any acute abnormalities that would explain your symptoms. FURTHER CARE: We have not found any emergent physical exam or lab abnormalities that would require admission to the hospital today. Many people who come to the ER with chest discomfort do not leave with a specific diagnosis at the end of their visit. In the Emergency Department we try to make sure that there is no emergent problem that needs admission to the hospital or antibiotics right now. This does not mean that your evaluation is complete--please be sure to follow up with your regular doctor as additional testing as an outpatient may be indicated. Please be certain to drink plenty of fluids over the next several days. WHEN YOU SHOULD BE SEEN NEXT: Please follow-up with your primary care provider within the next 2-3 days for reevaluation of your symptoms. WHEN TO RETURN TO THE ED: Monitor your symptoms closely and return to the emergency department immediately for any new/worsening symptoms including: Worsening chest pain, difficulty breathing, fevers greater than 100 degrees, passing out, any new symptom that concerns you. Call 911 with any medical emergency. Prescriptions: New ondansetron 4 mg tablet,disintegrating 4 mg PO Q8H PRN (Reason: nausea and vomiting) Qty: 10 0RF No Action atorvastatin 20 mg tablet 20 mg PO BEDTIME Qty: 90 3RF amlodipine 2.5 mg Tablet 2.5 mg PO DAILY aspirin [Aspirin Low-Strength] 81 mg Tablet,Delayed Release (Dr/Ec) 81 mg PO DAILY metoprolol tartrate 50 mg Tablet 50 mg PO BID albuterol sulfate [Ventolin HFA] 90 mcg/actuation Hfa Aerosol Inhaler 2 puff INHALATION Q4-6H PRN (Reason: Wheezing) valsartan 160 mg tablet 160 mg PO DAILY allopurinol 300 mg tablet 300 mg PO DAILY meloxicam 7.5 mg tablet 7.5 mg PO DAILY Trelegy Ellipta 100-62.5-25 mcg blister with device 1 inh inhalation DAILY Qty: 1 11RF Interventions: ED Discharge Assessment Last Done: 05/27/25 05:08 Discharge Date/Time: 05/27/25 05:09 Print Language: Telugu
[2025-05-26 23:34] LABS: MANUAL DIFF FLAG NO
[2025-05-26 23:35] LABS: Hematocrit 46.0 % (37.0-47.0); Hemoglobin 15.2 g/dl (12.0-16.0); Imm Gran Abs Auto 0.05 X10*3/uL (0.00-0.03); Imm Gran Pct Auto 0.4 % (0.0-0.4); Lymphocytes Absolute Auto 2.6 X10*3/uL (1.2-4.9); Mean Corpuscular HGB Conc 33.0 g/dl (31.0-35.0); Mean Corpuscular Hemoglobin 31.0 pg (27.0-33.0); Mean Corpuscular Volume 93.7 fL (80.0-98.0); NRBC Abs Auto 0.000 X10*3/uL (0.0-0.012); NRBC Pct Auto 0.0 /100WBC (0.0-0.2); Platelet Count 179 X10*3/uL (160-400); Red Blood Count 4.91 X10*6/uL (4.20-5.50); White Blood Count 11.4 X10*3/uL (4.8-10.8)
[2025-05-26 23:37] LABS: Appearance Urine Clear; Glucose Urine UA Negative (Negative); PH 8.5 (5.0-9.0); Specific Gravity - Urine 1.010 (1.005-1.025)
[2025-05-26 23:47] LABS: Anion Gap 15 (12-20); Blood Urea Nitrogen 16 mg/dL (9-16); Calcium 10.0 mg/dL (8.4-10.2); Carbon Dioxide 26 mmol/L (22-29); Chloride 106 mmol/L (96-108); Creatinine Clr Calc Pharmacy 57.1; Estimated Glomerular Filt Rate > 60; Potassium 4.6 mmol/L (3.3-5.1); Sodium 142 mmol/L (135-145)
[2025-05-26 23:55] LABS: Troponin-I High Sensitivity 6.0 ng/L (<3.5-17.0)
[2025-05-27 00:38] LABS: D Dimer High Sensitivity 412 NG/ML
[2025-05-27 00:44] LABS: Alanine Aminotransferase 38 U/L (0-31); Albumin Level 4.4 g/dL (3.5-5.0); Alkaline Phosphatase 134 U/L (39-117); Anion Gap 14 (12-20); Aspartate Amino Transferase 42 U/L (5-31); Blood Urea Nitrogen 15 mg/dL (9-16); Calcium 10.2 mg/dL (8.4-10.2); Carbon Dioxide 26 mmol/L (22-29); Chloride 107 mmol/L (96-108); Creatinine Clr Calc Pharmacy 54.5; Estimated Glomerular Filt Rate > 60; Lipase 18 U/L (8-78); Magnesium 2.2 mg/dL (1.6-2.6); Potassium 4.9 mmol/L (3.3-5.1); Sodium 142 mmol/L (135-145); Total Protein 7.7 g/dL (6.5-8.0)
[2025-05-27 02:18] LABS: Troponin-I High Sensitivity 6.2 ng/L (<3.5-17.0)
[2025-05-27 02:25] VITALS: BP 139/63; PULSE 83; RESP 19; TEMP 36.7
[2025-05-27] MEDS: iohexoL 350 MG/ML 100 ML INFUS..BTL 65 ML IV (02:27)
[2025-05-27 02:36] VITALS: PULSE 77
--- NOTE | 2025-05-27 04:04 | PC.NURSE ---
Resumed care of patient at 0300, she is resting comfortably in bed at this time, denies any SOB/CP. Pt is waiting for CT results at this time of which just returned. Call pryor within reach, HR/O2 remain stable on monitor.
[2025-05-27 04:39] VITALS: BP 126/60; PULSE 66; RESP 18; TEMP 37; O2SAT 95
[2025-05-27 05:08] VITALS: BP 126/60; PULSE 66; RESP 18; TEMP 37; O2SAT 95
== END 2025-05-27 05:09 | disposition home or self-care (01) ==
PROVIDERS: Emergency Provider Emergency Medicine; PCP Physician Assistant
DX: R07.89 Other chest pain (principal); R42 Dizziness and giddiness; I45.10 Unspecified right bundle-branch block; B34.9 Viral infection, unspecified; I10 Essential (primary) hypertension; Z79.899 Other long term (current) drug therapy
CPT/HCPCS: 36415; 71045; 71275; 80048; 80053; 81003; 83690; 83735; 84484; 85025; 85379; 93005; 99285; Q9967

== ENCOUNTER → 2025-05-26 23:06 | Outpatient (BNV) | payer MEDICARE, SELFPAY | PROVIDERS: Emergency Provider Emergency Medicine; PCP Physician Assistant; Visit Provider Internal Medicine | DX: I45.10 Unspecified right bundle-branch block (principal) | CPT/HCPCS: 93010 ==

== ENCOUNTER → 2025-05-26 23:35 | Outpatient (BNV) | payer MEDICARE, SELFPAY | PROVIDERS: Emergency Provider Emergency Medicine; PCP Physician Assistant; Visit Provider Radiology Diagnostic Radiology | DX: R07.2 Precordial pain (principal) | CPT/HCPCS: 71045 ==

== ENCOUNTER → 2025-05-27 01:16 | Outpatient (BNV) | payer MEDICARE, SELFPAY | PROVIDERS: Emergency Provider Emergency Medicine; PCP Physician Assistant; Visit Provider Radiology Diagnostic Radiology | DX: R07.89 Other chest pain (principal) | CPT/HCPCS: 71275 ==

== ENCOUNTER 2025-06-07 10:59 | Outpatient (REF) | payer MEDICARE, SELFPAY ==
--- NOTE | ~2025-06-07 | MM_ITS ---
EXAMINATION: MM SCREENING DIGITAL BREAST TOMOSYNTHESIS, BILATERAL CLINICAL INFORMATION: Screening. Asymptomatic. COMPARISON: Mammography: Comparison is made with available priors TECHNIQUE: Digital breast mammography with tomosynthesis is performed in both the craniocaudal and mediolateral oblique views along with computer-aided detection (CAD). FINDINGS: There are scattered areas of fibroglandular density. Left: Circumscribed oval mass upper outer breast anterior depth. Left marker clip. No suspicious calcifications or abnormal findings. Right: There are no significant masses, abnormal calcifications, or other abnormalities. MM/MM tomosynthesis screening BI IMPRESSION: Additional imaging is recommended ASSESSMENT: BI-RADS Category 0: Incomplete - Need additional Imaging Evaluation RECOMMENDATION: 1. Additional views of the left breast. 2. Targeted ultrasound if warranted after review of the additional views. 3. Radiology department staff will contact the patient for additional imaging. Additional Imaging required This examination should not preclude the clinical evaluation of a suspicious palpable abnormality. This patient's information was entered into a reminder system with a target due date for their next mammogram. Electronically signed by: Jo Babb DO 06/10/2025 05:38 PM EDT
== END 2025-06-07 11:00 | disposition home or self-care (01) ==
LOC: HO.MAMMO 10:59
PROVIDERS: PCP Physician Assistant; Visit Provider Physician Assistant
DX: Z12.31 Encounter for screening mammogram for malignant neoplasm of breast (principal)
CPT/HCPCS: 77063; 77067

== ENCOUNTER → 2025-06-07 11:15 | Outpatient (BNV) | payer MEDICARE, SELFPAY | PROVIDERS: PCP Physician Assistant; Visit Provider Internal Medicine | DX: Z12.31 Encounter for screening mammogram for malignant neoplasm of breast (principal) | CPT/HCPCS: 77063; 77067 ==

== ENCOUNTER 2025-07-10 09:15 | Outpatient (REF) | payer MEDICARE, SELFPAY ==
--- NOTE | ~2025-07-10 | MM_ITS ---
EXAMINATION: MM DIAGNOSTIC DIGITAL BREAST TOMOSYNTHESIS, LEFT Limited left breast ultrasound. CLINICAL INFORMATION: Call back from screening for circumscribed oval mass in the upper outer left breast anterior depth. COMPARISON: Mammography: Priors on PACS. TECHNIQUE: Digital breast tomosynthesis is performed in both the craniocaudal and mediolateral oblique views along with computer-aided detection (CAD). Synthesized 2D images are generated from the tomosynthesis. FINDINGS: There are scattered areas of fibroglandular density. Circumscribed oval mass upper outer breast anterior depth persists on additional imaging projections. No suspicious calcifications or other abnormal findings. Left marker clip. Targeted color Doppler ultrasound at 1:00 2 cm from nipple demonstrates a hypoechoic heterogeneous solid mass versus complicated cyst measuring 3 x 6 x 4 mm. MM/MM tomosynthesis added views L IMPRESSION: Focal asymmetry which is increased in size compared with priors correlating with a probable complicated cyst versus solid mass at 1:00 2 cm from the nipple. Recommend histology with ultrasound-guided core needle biopsy at this time for confirmation. The findings and recommendations were discussed with the patient the procedure will be scheduled. ASSESSMENT: BI-RADS Category 4: Suspicious RECOMMENDATION: Biopsy recommended Results were provided to the patient at time of visit by the technologist. Electronically signed by: Jo Babb DO 07/10/2025 11:12 AM EDT
== END 2025-07-10 09:16 | disposition home or self-care (01) ==
LOC: HO.MAMMO 09:15
PROVIDERS: PCP Physician Assistant; Visit Provider Physician Assistant
DX: R92.8 Other abnormal and inconclusive findings on diagnostic imaging of breast (principal)
CPT/HCPCS: 76642; 77061; 77065

== ENCOUNTER → 2025-07-10 10:00 | Outpatient (BNV) | payer MEDICARE, SELFPAY | PROVIDERS: PCP Physician Assistant; Visit Provider Internal Medicine | DX: R92.8 Other abnormal and inconclusive findings on diagnostic imaging of breast (principal) | CPT/HCPCS: 76642; 77065; G0279 ==

== ENCOUNTER 2025-07-12 10:27 | Outpatient (AMB) | payer MEDICARE, SELFPAY ==
--- NOTE | 2025-07-12 10:31 | A.OFFPC_ITS ---
Vital Signs 07/12/25 10:35 Height 5 ft 0.39 in Weight 99.337 kg BMI 42.2 BP 152/94 H Blood Pressure Location Lt brachial Position Sitting Respiration 20 Pulse 70 Pulse Source Pulse Oximeter Temp 97.9 F Temp Source Temporal Artery Scan Pulse Oximetry (%) 93 Oxygen Delivery Method Room Air Intake Visit Reasons: 6 Month F/U Accompanied by: Self / Same As Patient Allergies celecoxib (From Celebrex) Allergy (Verified 07/12/25 10:34) Diarrhea cortisone Allergy (Verified 07/12/25 10:34) [place] Tobacco use date assessed: 12/21/24 Dental Screening Dental Screen Date: 12/21/24 HPI HPI Comments History of Present Illness Details The patient is an 79 year old female with a past medical history of hypertension, hyperlipidemia, CKD, prediabetes, OA, asthma presenting for follow up. Last seen by pcp in July HTN/HLD: on amlodipine 2.5mg, valsartan 160mg, metoprolol, BP 152/94-just exercised. Denies chest pain, dizziness Asthma: Albuterol prn, claritin. Increased wheezing with less activity. albuterol helps but overall worse control. no cp or tightness OA: on meloxicam. Epidural shots and celebrex in the past. Sees Dr Fountain. Gout is well controlled Prediabetes-last A1c 5.7% Concerns: Needs biopsy on 07/23 due to abnormality on diagnostic ultrasound and mammogram very does have history of left breast mass with normal biopsy Health maintenance: Last screening mammogram 05/2025 with follow-up diagnostic mammogram and ultrasound on 07/10 Due for DEXA scan No longer undergoing colonoscopies ROS: General: No fevers, malaise, unintentional weight loss HEENT: No blurred vision, diplopia. No sore throat, nasal congestion, rhinorrhea, sinus pain, ear pain Cardiovascular: No chest pain, palpitations, or leg edema Respiratory: No shortness of breath, wheezing, cough GI: No abdominal pain, nausea, vomiting, diarrhea, constipation, melena, hematochezia : No dysuria, hematuria, increased urinary frequency, decreased urinary output MSK: No myalgia, back pain Neuro: No headaches, weakness, paresthesias Skin: No rashes or lesions EXAM: Constitutional - Awake and Alert, No apparent distress Eyes - PERRL Cardiovascular - S1S2, RRR, No edema Respiratory - Normal lung expansion, Normal respiratory effort, No respiratory distress, CTA bilaterally Extremities - no calf tenderness bilaterally, no swelling Skin - Warm/Dry Neurological - Alert & oriented x3 Psychological - Appropriate affect PFSH Medical History COVID-19 vaccine series completed DVT (deep venous thrombosis) Asthma Arthritis Back pain HTN (hypertension) Surgical History Hx of left cataract extraction Hx of cervical discectomy H/O colonoscopy Hx of cholecystectomy History of total right knee replacement Family History Mother No problems noted. Father No problems noted. Social History Household Members Other:: roomate Housing: House Are you a primary healthcare consultant to a significant other at home: No Do you presently have visiting nurse or other home services: No Patient Tobacco Use Status: Former Tobacco user Tobacco use type: Cigarette Years Smoked: 15 e-Cigarette/Vaping Use: Former Use service: No Current occupational status: retired Cognitive needs: No Hearing needs: No Vision needs: No Questionnaire Thrive Questionnaire Date Thrive assessed: 12/21/24 LAURA-7 AMB Questionnaire LAURA-7 Date LAURA - 7 assessed: 12/21/24 Source: Developed by Drs. Montez Mar, Rhina Ro, Blayne Costa and colleagues, with an educational fely from [employer]. Physical exam (Primary Care) Vital Signs: Last Vital Signs Temp 97.9 F 07/12/25 10:35 Pulse 70 07/12/25 10:35 Resp 20 07/12/25 10:35 BP 152/94 H 07/12/25 10:35 Pulse Ox 93 07/12/25 10:35 Oxygen Delivery Method Room Air 07/12/25 10:35 BMI result Body Mass Index 42.2 Tobacco/Smoking Status: Tobacco use Status Tobacco use date assessed 12/21/24 07/12/25 10:33 Patient Tobacco Use Status Former Tobacco user 07/12/25 10:33 Tobacco use type Cigarette 07/12/25 10:33 e-Cigarette/Vaping Use Former Use 07/12/25 10:33 Thrive Assessment: Date of Thrive Assessment Date Thrive assessed 12/21/24 07/12/25 10:33 Coding Level of Care Code Est Pt Level 4 (28484) Complex EM visit Add On [id number] Diagnoses Primary hypertension I10 Hypertension type: primary hypertension Hyperlipidemia, unspecified hyperlipidemia type E78.5 Hyperlipidemia type: unspecified Prediabetes R73.03 Asthma J45.909 Assessment & Plan Assessment & Plan (1) HTN (hypertension): Code(s): I10 - Essential (primary) hypertension Category: Medical Qualifiers: Hypertension type: primary hypertension Qualified Code(s): I10 - Essen tial (primary) hypertension Plan: Previously controlled, elevated today, just esxercised. Will check blood pressures at home and reach out to the office with readings. Continue amlodipine 2.5mg, metoprolol 50 mg twice daily and valsartan 160 mg daily. We will adjust dose as needed pending blood pressure readings (2) Hyperlipidemia: Code(s): E78.5 - Hyperlipidemia, unspecified Category: Medical Qualifiers: Hyperlipidemia type: unspecified Qualified Code(s): E78.5 - Hyperlipidemia, unspecified Plan: Lipid panel ordered. Continue atorvastatin 20 mg nightly (3) Prediabetes: Code(s): R73.03 - Prediabetes Category: Medical Plan: A1c ordered. Diet lower in refined sugars and simple carbohydrates. Continue with regular exercise and weight loss efforts (4) Asthma: Comment: uses prn inhaler Code(s): J45.909 - Unspecified asthma, uncomplicated Category: Medical Plan: Stable. Albuterol PRN. No recent exacerbation Plan Follow-up in the office in 6 months, labs to be completed prior to visit. DEXA scan ordered Orders: Orders Basic Metabolic Panel 6 Months E78.5 - Hyperlipidemia, unspecified, I10 - Essential (primary) hypertension, R73.03 - Prediabetes Hemoglobin A1c 6 Months R73.03 - Prediabetes XR DEXA axial skeleton Today M89.8X9 - Other specified disorders of bone, unspecified site, N95.1 - Menopausal and female climacteric states, Z13.820 - Encounter for screening for osteoporosis Lipid Panel 6 Months E78.5 - Hyperlipidemia, unspecified, I10 - Essential (marisel reed) hypertension, R73.03 - Prediabetes Liver Panel 6 Months E78.5 - Hyperlipidemia, unspecified, I10 - Essential (primary) hypertension, R73.03 - Prediabetes Complete Blood Count Auto Diff 6 Months E78.5 - Hyperlipidemia, unspecified, I10 - Essential (primary) hypertension, R73.03 - Prediabetes
[2025-07-12 10:35] VITALS: BP 152/94; PULSE 70; RESP 20; TEMP 36.6; O2SAT 93; BMI 42.2
== END 2025-07-12 11:00 | disposition home or self-care (01) ==
PROVIDERS: PCP Physician Assistant; Visit Provider Physician Assistant
DX: I10 Essential (primary) hypertension (principal); E78.5 Hyperlipidemia, unspecified; R73.03 Prediabetes; J45.909 Unspecified asthma, uncomplicated

== ENCOUNTER → 2025-07-12 10:27 | Outpatient (BNVA) | payer MEDICARE, SELFPAY | PROVIDERS: PCP Internal Medicine; Visit Provider Physician Assistant | DX: I10 Essential (primary) hypertension (principal); E78.5 Hyperlipidemia, unspecified; R73.03 Prediabetes; J45.909 Unspecified asthma, uncomplicated; Z79.899 Other long term (current) drug therapy | CPT/HCPCS: 99212 ==

== ENCOUNTER 2025-07-23 08:27 | Outpatient (AMB) | payer MEDICARE, SELFPAY ==
--- NOTE | 2025-07-23 08:29 | MHC.OFFVIS ---
Vital Signs 07/23/25 08:30 Height 5 ft 0.39 in Weight 221 lb BMI 42.6 BP 138/62 Blood Pressure Location Rt radial Position Sitting Pulse 69 Intake Visit Reasons: US bx left breast 1:00 O'clock density Intake Note: Patient is seen in office for ultrasound biopsy CONSULT left breast for 1 o'clock density. Pt c/o: does not feel lumps, bumps. Denies breasts tenderness, nipple discharge. No personal or family hx of breast CA. Imaging: Lt breast US and MM: 07-10-2025 Bx today @ 10am Inside Polisher Required: No Accompanied by: Julisasarah Dejesus friend Allergies celecoxib (From Celebrex) Allergy (Verified 07/23/25 08:36) Diarrhea cortisone Allergy (Verified 07/23/25 08:36) [place] Medication List - Last Reconciled 07/23/25 by Tavo Mac MD albuterol sulfate 90 mcg/actuation (Ventolin HFA) 2 puffs inhalation Q4-6H PRN allopurinol 300 mg PO DAILY amlodipine 2.5 mg PO DAILY aspirin 81 mg PO DAILY atorvastatin 20 mg PO BEDTIME meloxicam 7.5 mg PO DAILY metoprolol tartrate 50 mg PO BID valsartan 160 mg PO DAILY HPI Comments Details: 79-year-old female patient presenting for recently identified density in the left breast noted on screening mammogram performed on 06/07/2025. Subsequent additional views and breast ultrasound of the left breast performed on 07/10/2025 confirmed a density in the 1 o'clock position 2 cm from the nipple demonstrated a hypoechoic heterogeneous solid mass versus complicated cyst measuring 3 x 6 x 4 mm. This was felt to be suspicious for malignancy and ultrasound-guided core biopsy recommended (BI-RADS 4). She reports a previous history of a left breast needle biopsy which was benign approximately 3-4 years ago. She denies any symptoms in the breast including breast pain, skin change, nipple discharge, nipple retraction, or enlarged lymph nodes. Her family history is negative for breast cancer. Menarche was at the age of 10, she is in her 1st child was born when she was 24 years old. Her LMP was at the age of 48. She denied hormone replacement therapy. She denies Ashkenazi Yazidi heritage. [facility] Medical History (Updated 07/23/25 @ 08:56 by Tavo Mac MD) COVID-19 vaccine series completed DVT (deep venous thrombosis) Asthma Arthritis Back pain HTN (hypertension) Surgical History Hx of left cataract extraction Hx of cervical discectomy H/O colonoscopy Hx of cholecystectomy History of total right knee replacement Family History Mother No problems noted. Father No problems noted. Social History Household Members Other:: roomate Housing: House Are you a primary child care leader to a significant other at home: No Do you presently have visiting nurse or other home services: No Patient Tobacco Use Status: Former Tobacco user Tobacco use type: Cigarette Years Smoked: 15 e-Cigarette/Vaping Use: Former Use service: No Current occupational status: retired Cognitive needs: No Hearing needs: No Vision needs: No Review of Systems Const All systems reviewed & are unremarkable except as noted in HPI and below Physical Exam Vital Signs: Last Vital Signs Pulse 69 07/23/25 08:30 BP 138/62 07/23/25 08:30 BMI result Body Mass Index 42.6 Const General: cooperative and no acute distress Nutritional Appearance: well nourished Orientation/consciousness: patient oriented x3 Limitations: no limitations HEENT Head: Yes normocephalic and Yes atraumatic Ears: hearing grossly normal bilaterally Chest Other: Left breast: No skin change, no nipple retraction, no nipple discharge, no palpable mass, no enlarged lymph nodes. Right breast: No skin change, no nipple retraction, no nipple discharge, no palpable mass, no enlarged lymph nodes Resp Effort & Inspection: normal respiratory effort, no audible wheezes, no cough and no respiratory distress Cardio Jugular venous distension: no JVD GI Inspection: Yes normal to inspection Skin Other: Warm, dry, no rash Neuro General: patient oriented x3 Extrem General: Yes no clubbing, cyanosis or edema Assessment & Plan Assessment & Plan (1) Abnormal mammogram of left breast: Code(s): R92.8 - Other abnormal and inconclusive findings on diagnostic imaging of breast Category: Medical Plan 79-year-old female patient presenting with a recent mammogram and ultrasound revealing a hypoechoic density in the left breast 1 o'clock position 2 cm from the nipple felt to be suspicious for malignancy. This has near a previous biopsy performed several years ago which was benign. Examination reveals no suspicious findings in either breast. I reviewed the mammograms and ultrasounds studies with the patient and reviewed the procedure for biopsy. She is scheduled for an ultrasound-guided core biopsy later today at the [facility]. Asked her to return in 1 week to review the pathology results and discuss treatment options. She expressed understanding and agrees with the plan. Coding Level of Care Code New Pt Level 4 (91980) Diagnoses Abnormal mammogram of left breast R92.8
[2025-07-23 08:30] VITALS: BP 138/62; PULSE 69; BMI 42.6
== END 2025-07-23 08:55 | disposition home or self-care (01) ==
LOC: HO.HGS 08:28
PROVIDERS: PCP Physician Assistant; Visit Provider Surgery
DX: R92.8 Other abnormal and inconclusive findings on diagnostic imaging of breast (principal)
CPT/HCPCS: 99204

== ENCOUNTER 2025-07-23 09:34 | Outpatient (REF) | payer MEDICARE, SELFPAY ==
--- NOTE | ~2025-07-23 | MM_ITS ---
EXAMINATION/PROCEDURE: 1. ULTRASOUND GUIDED CORE BIOPSY BREAST, LEFT 2. POST PROCEDURE DIGITAL MAMMOGRAM, LEFT CLINICAL INFORMATION: Status post left breast mammogram/ultrasound workup on July 10, 2025, which recommended ultrasound-guided needle core biopsy of complicated cyst or solid mass at 1 o'clock position 2 cm from the nipple. COMPARISON: Left mammogram/ultrasound on July 10, 2025. FINDINGS: Proper informed consent is obtained from the patient after discussion of the procedure, potential risks and complications, and alternatives. Patient was given an opportunity for questions. The patient appeared to understand. The patient consented to the procedure and signed the consent form. GUIDANCE: Ultrasound-guided; aseptic technique. LESION: Hypoechoic lesion at 1 o'clock position 2 cm from the nipple measuring 0.6 x 0.5 x 0.3 cm. APPROACH: Lateral. ANESTHESIA: 7 cc of lidocaine 2% buffered with Sodium Bicarbonate 8.4% (9ml:1ml ratio). NEEDLE: 14-gauge Bard Marquee biopsy device with co-axial introducer. CORES: 3. CLIP: HydroMARK; shape: open coil. The needle was then removed and adequate hemostasis was achieved. Estimated blood loss: Minimal POST PROCEDURE UNILATERAL DIGITAL MAMMOGRAM: The post biopsy mammogram is performed in separate room using separate digital mammography equipment from the biopsy procedure. Full field ML 90 degrees, MLO and CC views are obtained. The open coil shape clip marker is in satisfactory position. Note that there is a pre-existing Bard coil shape clip in the lower inner quadrant. No gross hematoma. The patient tolerated the procedure well. No immediate complications. Home instructions reviewed with the patient. Final pathology results are pending. MM/MM diagnostic mammo unilat LT IMPRESSION: 1. Status post ultrasound-guided core biopsy left breast lesion at 1 o'clock position at 2 cm from the nipple. 2. Clip placed: HydroMARK; shape: open coil. 3. Pathology pending. An addendum report will be issued. ASSESSMENT: BI-RADS: Post Procedure Mammograms for Marker Placement RECOMMENDATION: Awaiting Pathology Results Electronically signed by: Monik James MD 07/23/2025 02:43 PM [facility]
[2025-07-23] MEDS: Lidocaine HCl 2 % MPF 5 ML VIAL 9 ML SUBCUT (11:07)
== END 2025-07-23 09:35 | disposition home or self-care (01) ==
LOC: HO.MAMMO 09:34
PROVIDERS: PCP Physician Assistant; Visit Provider Surgery
DX: R92.8 Other abnormal and inconclusive findings on diagnostic imaging of breast (principal)
CPT/HCPCS: 19083; 77062; 77065; 88305; 99202; A4648; J2003

== ENCOUNTER → 2025-07-23 10:00 | Outpatient (BNV) | payer MEDICARE, SELFPAY | PROVIDERS: PCP Physician Assistant; Visit Provider Radiology Body Imaging | DX: R92.8 Other abnormal and inconclusive findings on diagnostic imaging of breast (principal) | CPT/HCPCS: 19083; 77065 ==

== ENCOUNTER 2025-08-01 08:46 | Outpatient (AMB) | payer MEDICARE, SELFPAY ==
--- NOTE | 2025-08-01 08:49 | MHC.OFFVIS ---
Vital Signs 08/01/25 08:51 Height 5 ft 0.39 in Weight 219 lb BMI 42.2 BP 190/71 H Blood Pressure Location Rt brachial Position Sitting Pulse 66 Intake Visit Reasons: 1wk follow up US bx left breast Intake Note: Patient is seen in office for ultrasound biopsy RESULTS left breast for 1 o'clock density. Pt c/o: bx site oozing. Denies redness, tenderness Creative Services Specialist Required: No Accompanied by: friend Julisa Allergies celecoxib (From Celebrex) Allergy (Verified 08/01/25 08:58) Diarrhea cortisone Allergy (Verified 08/01/25 08:58) Flushing HPI HPI 1wk follow up US bx left breast: Details: 79 year old female patient presenting today for biopsy results. She was recently identified to have a density in the left breast noted on screening mammogram performed on 06/07/2025. Subsequent additional views and breast ultrasound of the left breast were performed on 07/10/2025 confirmed a density in the 1 o'clock position 2 cm from the nipple demonstrated a hypoechoic heterogeneous solid mass versus complicated cyst measuring 3 x 6 x 4 mm. This was felt to be suspicious for malignancy and ultrasound-guided core biopsy recommended (BI-RADS 4). She reports a previous history of a left breast needle biopsy which was benign approximately 3-4 years ago. She denies any symptoms in the breast including breast pain, skin change, nipple discharge, nipple retraction, or enlarged lymph nodes. Her family history is negative for breast cancer. Menarche was at the age of 10, she is in her 1st child was born when she was 24 years old. Her LMP was at the age of 48. She denied hormone replacement therapy. She denies Ashkenazi Congregation heritage. Ultrasound-guided core biopsy of the left breast mass at 1 o'clock was performed on 07/23/25. Pathology revealed breast tissue with fibrocystic changes, duct ectasia, 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 Pathology results were reviewed by the radiologyist and felt concordant with imaging findings. Patient reports tolerating the biopsy well. She is concerned about the healing from the biopsy site itself. She had a small amount of clearish yellow drainage and a small open area. She denies fevers, chills, nausea, vomiting, redness, warmth of the area. She has been applying neosporin to the area. [facility] Medical History (Updated 07/23/25 @ 08:56 by Tavo Mac MD) COVID-19 vaccine series completed DVT (deep venous thrombosis) Asthma Arthritis Back pain HTN (hypertension) Surgical History Hx of left cataract extraction Hx of cervical discectomy H/O colonoscopy Hx of cholecystectomy History of total right knee replacement Family History Mother No problems noted. Father No problems noted. Social History Household Members Other:: roomate Housing: House Are you a primary healthcare administrative assistant to a significant other at home: No Do you presently have visiting nurse or other home services: No Patient Tobacco Use Status: Former Tobacco user Tobacco use type: Cigarette Years Smoked: 15 e-Cigarette/Vaping Use: Former Use service: No Current occupational status: retired Cognitive needs: No Hearing needs: No Vision needs: No Review of Systems Const All systems reviewed & are unremarkable except as noted in HPI and below Physical Exam Vital Signs: Last Vital Signs Pulse 66 08/01/25 08:51 BP 190/71 H 08/01/25 08:51 BMI result Body Mass Index 42.2 Const General: comfortable, no acute distress and alert Orientation/consciousness: patient oriented x3 Chest Other: left breast with 1cm area of superificial skin breakdown, underlying tissue intact with no drainage noted, no surrounding erythema, edema, ecchymosis or induration, no increased warmth of the area, nontender, no palpable masses Resp Effort & Inspection: normal respiratory effort and able to speak in complete sentences Skin Other: warm and dry as noted above Neuro General: patient oriented x3 and moves all extremities Results Reviewed Results Reviewed: Breast, left mass at 1 o'clock, biopsy: Breast tissue with fibrocystic changes, duct ectasia, 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 Assessment & Plan Assessment & Plan (1) Abnormal ultrasound of breast: Code(s): R92.8 - Other abnormal and inconclusive findings on diagnostic imaging of breast Category: Medical Plan 79-year-old female patient presenting with a recent mammogram and ultrasound revealing a hypoechoic density in the left breast 1 o'clock position 2 cm from the nipple felt to be suspicious for malignancy. 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 She tolerated this well. The biopsy site does have a small area of skin maceration but the underlying skin is intact without evidence of infection. She was reassured that this will likely heal on its own however if it does not or begins to worsen with redness, warmth, purulent appearing drainage, she can return for evaluation. Patient may return to routine screening mammogram in May 2026 per radiologist recommendations. This has been ordered. She can follow up as needed if she develops concerns. Orders: Orders MM screening mammo BI 05/28/26 Z12.31 - Encounter for screening mammogram for malignant neoplasm of breast Coding Level of Care Code Est Pt Level 3 (64005) Diagnoses Abnormal ultrasound of breast R92.8
[2025-08-01 08:51] VITALS: BP 190/71; PULSE 66; BMI 42.2
== END 2025-08-01 09:05 | disposition home or self-care (01) ==
LOC: HO.HGS 08:47
PROVIDERS: PCP Physician Assistant; Visit Provider Physician Assistant Surgical
DX: R92.8 Other abnormal and inconclusive findings on diagnostic imaging of breast (principal)
CPT/HCPCS: 99213

== ENCOUNTER → 2025-08-01 08:46 | Outpatient (BNVA) | payer MEDICARE, SELFPAY | PROVIDERS: PCP Physician Assistant; Visit Provider Physician Assistant Surgical | DX: R92.8 Other abnormal and inconclusive findings on diagnostic imaging of breast (principal); N60.02 Solitary cyst of left breast; Z87.891 Personal history of nicotine dependence | CPT/HCPCS: 99212 ==

== ENCOUNTER 2025-08-12 14:17 | Outpatient (AMB) | payer MEDICARE, SELFPAY ==
--- NOTE | 2025-08-12 14:35 | A.OFFVIS_ITS ---
Vital Signs 3 08/12/25 14:40 Height 5 ft Weight 218 lb 14.704 oz BMI 42.8 Respiration 18 Pulse 62 Intake Visit Reasons: Wound check Intake Note: Patient is seen in office for wound check, following left breast. Pt c/o: continued discharge, has white pus coming out, area is painful and red Hospice Clinical Manager Required: No Licensed Club Manager: Licensed Club Manager Present Accompanied by: Self / Same As Patient Allergies celecoxib (From Celebrex) Allergy (Verified 08/12/25 14:40) Diarrhea cortisone Allergy (Verified 08/12/25 14:40) Flushing Medication List - Last Reconciled 08/12/25 by Tavo Mac MD albuterol sulfate 90 mcg/actuation (Ventolin HFA) 2 puffs inhalation Q4-6H PRN allopurinol 300 mg PO DAILY amlodipine 2.5 mg PO DAILY aspirin 81 mg PO DAILY atorvastatin 20 mg PO BEDTIME meloxicam 7.5 mg PO DAILY metoprolol tartrate 50 mg PO BID valsartan 160 mg PO DAILY HPI Comments Details: 79-year-old female patient status post left breast needle core biopsy on 07/23/2025. Postprocedure she developed redness and discharge from the biopsy site. 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 Routine follow-up was recommended by Radiology with annual mammography. Since this time she has had continued discharge and an area of black skin developing at the biopsy site. She returns today for wound check. [facility] Medical History COVID-19 vaccine series completed DVT (deep venous thrombosis) Asthma Arthritis Back pain HTN (hypertension) Surgical History Hx of left cataract extraction Hx of cervical discectomy H/O colonoscopy Hx of cholecystectomy History of total right knee replacement Family History Mother No problems noted. Father No problems noted. Social History Household Members Other:: roomate Housing: House Are you a primary urgent care nurse practitioner to a significant other at home: No Do you presently have visiting nurse or other home services: No Patient Tobacco Use Status: Former Tobacco user Tobacco use type: Cigarette Years Smoked: 15 e-Cigarette/Vaping Use: Former Use service: No Current occupational status: retired Cognitive needs: No Hearing needs: No Vision needs: No Review of Systems Const All systems reviewed & are unremarkable except as noted in HPI and below Physical Exam Vital Signs: Last Vital Signs Pulse 62 08/12/25 14:40 Resp 18 08/12/25 14:40 BMI result Body Mass Index 42.8 Const General: comfortable Nutritional Appearance: well nourished Orientation/consciousness: patient oriented x3 Chest Other: Biopsy site in the lower outer quadrant with a black eschar noted measuring approximately 1 cm in diameter. There was a small rim of erythema surrounding this but no evidence of underlying abscess. Chest/axillae images: 2 1. Area of skin necrosis with surrounding erythema measuring approximately 1 cm in diameter. A 2nd area of tape blistering is noted below this Resp Effort & Inspection: normal respiratory effort Skin Other: Skin changes left breast as noted above Neuro General: patient oriented x3 Assessment & Plan Assessment & Plan (1) Abnormal mammogram of left breast: Code(s): R92.8 - Other abnormal and inconclusive findings on diagnostic imaging of breast Category: Medical Plan 79-year-old female status post left breast radiologic guided core biopsy. Post procedure the patient developed skin necrosis with the biopsy site. I recommended leaving the site open without any further dressing as the tape is cause skin blistering. She will return in 2 weeks for follow-up examination. Coding Level of Care Code Est Pt Level 3 (41865) Diagnoses Abnormal mammogram of left breast R92.8
[2025-08-12 14:40] VITALS: PULSE 62; RESP 18; BMI 42.8
== END 2025-08-12 14:50 | disposition home or self-care (01) ==
LOC: HO.HGS 14:18
PROVIDERS: PCP Physician Assistant; Visit Provider Surgery
DX: R92.8 Other abnormal and inconclusive findings on diagnostic imaging of breast (principal)
CPT/HCPCS: 99213

== ENCOUNTER → 2025-08-12 14:17 | Outpatient (BNVA) | payer MEDICARE, SELFPAY | PROVIDERS: PCP Physician Assistant; Visit Provider Surgery | DX: R92.8 Other abnormal and inconclusive findings on diagnostic imaging of breast (principal); Z48.817 Encounter for surgical aftercare following surgery on the skin and subcutaneous tissue | CPT/HCPCS: 99212 ==

== ENCOUNTER 2025-08-26 10:03 | Outpatient (AMB) | payer MEDICARE, SELFPAY ==
--- NOTE | 2025-08-26 10:03 | MHC.OFFVIS ---
Vital Signs 08/26/25 10:14 Height 5 ft Weight 220 lb 8 oz BMI 43.1 BP 186/77 H Blood Pressure Location Lt brachial Position Sitting Pulse 72 Intake Visit Reasons: 2 wk followup Wound check Intake Note: Patient is seen in office for 2 weeks follow up, following left breast. Pt c/o: continued redness, no improvement in the breast since last visit Landscape Gardener Required: No Gastroenterology Teacher: Gastroenterology Teacher Present Accompanied by: Self / Same As Patient Allergies celecoxib (From Celebrex) Allergy (Verified 08/12/25 14:40) Diarrhea cortisone Allergy (Verified 08/12/25 14:40) Flushing Medication List - Last Reconciled 08/26/25 by Tavo Mac MD albuterol sulfate 90 mcg/actuation (Ventolin HFA) 2 puffs inhalation Q4-6H PRN allopurinol 300 mg PO DAILY amlodipine 2.5 mg PO DAILY aspirin 81 mg PO DAILY atorvastatin 20 mg PO BEDTIME meloxicam 7.5 mg PO DAILY metoprolol tartrate 50 mg PO BID valsartan 160 mg PO DAILY HPI Comments Details: Patient returns today for wound check following a needle core biopsy of the left breast. She has some soreness and continues to have the necrotic skin at the insertion site. She feels this is approximately the same as it was 2 weeks ago. She is leaving for [place] this week to see her granddaughter graduate from college. She will spend her holiday in [place]. [facility] Medical History COVID-19 vaccine series completed DVT (deep venous thrombosis) Asthma Arthritis Back pain HTN (hypertension) Surgical History Hx of left cataract extraction Hx of cervical discectomy H/O colonoscopy Hx of cholecystectomy History of total right knee replacement Family History Mother No problems noted. Father No problems noted. Social History Household Members Other:: roomate Housing: House Are you a primary client care manager to a significant other at home: No Do you presently have visiting nurse or other home services: No Patient Tobacco Use Status: Former Tobacco user Tobacco use type: Cigarette Years Smoked: 15 e-Cigarette/Vaping Use: Former Use service: No Current occupational status: retired Cognitive needs: No Hearing needs: No Vision needs: No Review of Systems Const All systems reviewed & are unremarkable except as noted in HPI and below Physical Exam Const General: comfortable Nutritional Appearance: well nourished Orientation/consciousness: patient oriented x3 Chest Other: Biopsy site in the lower outer quadrant with a black eschar noted measuring approximately 1 cm in diameter. The eschar is starting to lift circumferentially and should eventually fall off. There was no evidence of underlying infection. Resp Effort & Inspection: normal respiratory effort Skin Other: Skin changes left breast as noted above Neuro General: patient oriented x3 Assessment & Plan Assessment & Plan (1) Abnormal ultrasound of breast: Code(s): R92.8 - Other abnormal and inconclusive findings on diagnostic imaging of breast Category: Medical (2) Abnormal mammogram of left breast: Code(s): R92.8 - Other abnormal and inconclusive findings on diagnostic imaging of breast Category: Medical Plan 79-year-old female patient status post needle core biopsy of the left breast who developed an area of necrosis in the skin measuring approximately 1 cm in diameter postprocedure. This appears to be related to the local anesthesia and appears no worse today. There was no evidence of infection and there was now evidence of eschar lifting off the dermis. She should continue to monitor the site and call should she develop increased pain, redness or discharge. She will be traveling to [place] next week but is welcome to call for any questions. Coding Level of Care Code Est Pt Level 3 (36140) Diagnoses Abnormal ultrasound of breast R92.8 Abnormal mammogram of left breast R92.8
[2025-08-26 10:14] VITALS: BP 186/77; PULSE 72; BMI 43.1
== END 2025-08-26 10:22 | disposition home or self-care (01) ==
LOC: HO.HGS 10:03
PROVIDERS: PCP Physician Assistant; Visit Provider Surgery
DX: R92.8 Other abnormal and inconclusive findings on diagnostic imaging of breast (principal)
CPT/HCPCS: 99213

== ENCOUNTER → 2025-08-26 10:03 | Outpatient (BNVA) | payer MEDICARE, SELFPAY | PROVIDERS: PCP Physician Assistant; Visit Provider Surgery | DX: N64.89 Other specified disorders of breast (principal); R92.8 Other abnormal and inconclusive findings on diagnostic imaging of breast; Z98.890 Other specified postprocedural states | CPT/HCPCS: 99212 ==